=== PATIENT | female | born 1935 | race Caucasian/White ===

== ENCOUNTER 2020-03-24 13:13 | Emergency (ER) | payer MEDICARE, OTHER ==
[~2020-03-24] VITALS: Ht 152.4 cm; Wt 58.9 kg
[~2020-03-24 13:13] MED LIST: ASPI-1265 PO; CITRACAL; LISI-230 PO; LOVA40TA76 PO; MAGN400C PO; OMEG1CAP54 PO; SYN0.1T PO; VITAMIN B 12 PO; VITAMIN D PO; [UNRECOGNIZED DRUG - CODE] PO
[2020-03-24 15:23] LABS: BASOPHILS # (AUTO) 0.1 X10'3 (0-0.2); BASOPHILS % (AUTO) 0.7 % (0-1); EOSINOPHILS # (AUTO) 0.1 X10'3 (0-0.9); EOSINOPHILS % (AUTO) 0.4 % (0-6); HEMATOCRIT 39.8 % (35.0-45.0); LYMPHOCYTES # (AUTO) 1.5 X10'3 (1.1-4.8); LYMPHOCYTES % (AUTO) 11.6 % (21-51); MEAN CORPUSCULAR HEMOGLOBIN 30.5 PG (27.0-31.0); MEAN CORPUSCULAR HGB CONC 32.6 g/dL (33.0-36.5); MEAN CORPUSCULAR VOLUME 93.6 FL (78-98); MONOCYTES # (AUTO) 0.8 X10'3 (0-0.9); NEUTROPHILS # (AUTO) 10.7 X10'3 (1.8-7.7); NEUTROPHILS % (AUTO) 81.3 % (42-75); PLATELET COUNT 450 X10'3 (140-440); RED BLOOD COUNT 4.25 X10'6 (4.20-5.60); RED CELL DISTRIBUTION WIDTH 14.7 % (11.5-14.5); WHITE BLOOD COUNT 13.1 X10'3 (4.5-11.0)
[2020-03-24 15:43] LABS: ALANINE AMINOTRANSFERASE 43 U/L (12-78); ALBUMIN 3.6 G/DL (3.4-5.0); ALBUMIN/GLOBULIN RATIO 0.8 (1.1-1.5); ALKALINE PHOSPHATASE 87 IU/L (46-116); ANION GAP 7 (8-16); ASPARTATE AMINO TRANSFERASE 29 U/L (10-37); BILIRUBIN,TOTAL 0.6 MG/DL (0.1-1.0); BLOOD UREA NITROGEN 18 MG/DL (7-18); BUN/CREATININE RATIO 20.5 (6.6-38.0); CALCIUM 10.2 MG/DL (8.5-10.1); CHLORIDE 98 MMOL/L (99-107); CREATININE 0.88 MG/DL (0.40-0.90); GLUCOSE 148 MG/DL (70-104); POTASSIUM 4.1 MMOL/L (3.5-5.1); SODIUM 133 MMOL/L (135-145); TOTAL CARBON DIOXIDE 27.6 MMOL/L (24-32); eGFR 61 ML/MIN
--- NOTE | 2020-03-24 16:00 | NUR ---
ERMD at bedside to digitally disimpact stool.
[2020-03-24] MEDS ORDERED: mineral oil 133ml enema RC PRN (16:10)
--- NOTE | 2020-03-24 17:20 | NUR ---
Scant amount of stool passed after fleet enema. Soap suds enema administered as ordered. Will continue to monitor.
[2020-03-24] MEDS ORDERED: POLY17PO10 PO (18:51)
--- NOTE | 2020-03-24 18:54 | NUR ---
SPOKE WITH SONON PHONE, INFORMED OF DC READY. SAYS WILL BE HERE IN APPROX 20 MINUTES
[2020-03-24 18:59] VITALS: BP 125/69
== END 2020-03-24 19:08 | disposition home or self-care (01) ==
LOC: ER 13:14
DX: K59.00 Constipation, unspecified (principal); Z88.0 Allergy status to penicillin; Z88.8 Allergy status to other drugs, medicaments and biological substances; Z79.82 Long term (current) use of aspirin; Z79.899 Other long term (current) drug therapy; Z98.891 History of uterine scar from previous surgery; Z90.49 Acquired absence of other specified parts of digestive tract
CPT/HCPCS: 36415; 74176; 80053; 85025; 85610; 99284

== ENCOUNTER 2021-02-06 06:53 | Outpatient (CLI) | payer MEDICARE, OTHER | END 2021-02-06 23:59 | disposition home or self-care (01) | LOC: RT 06:53 | PROVIDERS: ATTEND Internal Medicine Cardiovascular Disease | DX: I70.0 Atherosclerosis of aorta (principal); G31.89 Other specified degenerative diseases of nervous system; Z79.899 Other long term (current) drug therapy | CPT/HCPCS: 71046; 85018; 94010; 94727; 94729 ==

== ENCOUNTER 2021-05-19 12:19 | Emergency (ER) | payer MEDICARE, OTHER ==
[~2021-05-19] VITALS: Ht 152.4 cm; Wt 58.0 kg
[2021-05-19 12:24] VITALS: BP 143/64
--- NOTE | 2021-05-19 15:10 | NUR ---
provider at bedside.
[2021-05-19] MEDS ORDERED: LIDOcaine 1% W/epiNEPHrine 1:200,000 10ml vial IJ ONE (15:20)
[2021-05-19] MEDS ORDERED: TETanus/Pertussis (Acell)/Diphther VAC/PF (Tdap-Adult) 0.5ml syringe IMVAC ONE (15:20)
[2021-05-19] MEDS ORDERED: LIDOcaine 1% W/epiNEPHrine 1:100,000 20ml vial IJ ONE (15:25)
== END 2021-05-19 16:34 | disposition home or self-care (01) ==
LOC: ER 12:20
DX: S42.292A Other displaced fracture of upper end of left humerus, initial encounter for closed fracture (principal); S01.01XA Laceration without foreign body of scalp, initial encounter; I48.91 Unspecified atrial fibrillation; E78.00 Pure hypercholesterolemia, unspecified; I10 Essential (primary) hypertension; Z88.0 Allergy status to penicillin; Z79.82 Long term (current) use of aspirin; Z79.899 Other long term (current) drug therapy; W18.09XA Striking against other object with subsequent fall, initial encounter; Z91.81 History of falling; Y93.89 Activity, other specified; Y92.096 Garden or yard of other non-institutional residence as the place of occurrence of the external cause; Y99.8 Other external cause status
CPT/HCPCS: 12001; 70450; 72125; 73030; 73090; 90715; 99284

== ENCOUNTER 2021-06-01 12:31 | Emergency (ER) | payer MEDICARE, OTHER ==
[~2021-06-01] VITALS: Ht 152.4 cm; Wt 58.0 kg
[2021-06-01 12:39] VITALS: BP 166/79
== END 2021-06-01 12:49 | disposition home or self-care (01) ==
LOC: ER 12:31
DX: S01.01XD Laceration without foreign body of scalp, subsequent encounter (principal); I48.91 Unspecified atrial fibrillation; E78.00 Pure hypercholesterolemia, unspecified; I10 Essential (primary) hypertension; Z48.02 Encounter for removal of sutures; Z88.0 Allergy status to penicillin; Z79.82 Long term (current) use of aspirin; Z79.899 Other long term (current) drug therapy; W19.XXXD Unspecified fall, subsequent encounter
CPT/HCPCS: 99284

== ENCOUNTER 2022-07-23 10:30 | Outpatient (CLI) | payer MEDICARE, BC | END 2022-07-23 23:59 | disposition home or self-care (01) | LOC: CARD DIAG 10:30 | PROVIDERS: ATTEND Internal Medicine Cardiovascular Disease | DX: I08.0 Rheumatic disorders of both mitral and aortic valves (principal); I50.30 Unspecified diastolic (congestive) heart failure | CPT/HCPCS: 93306 ==

== ENCOUNTER 2024-07-02 12:32 | Emergency (ER) | payer MEDICARE, BC ==
[~2024-07-02] VITALS: Ht 154.9 cm; Wt 53.8 kg
[2024-07-02 13:44] LABS: BASOPHILS % (AUTO) 0.4 % (0-1); EOSINOPHILS % (AUTO) 0.2 % (0-6); HEMATOCRIT 33.3 % (35.0-45.0); HEMOGLOBIN 11.2 g/dl (12.0-16.0); LYMPHOCYTES # (AUTO) 0.5 X10'3 (1.1-4.8); MEAN CORPUSCULAR HEMOGLOBIN 34.1 PG (27.0-31.0); MEAN CORPUSCULAR HGB CONC 33.7 g/dL (33.0-36.5); MEAN CORPUSCULAR VOLUME 101.4 FL (78-98); MEAN PLATELET VOLUME 8.3 FL (7.4-10.4); MONOCYTES # (AUTO) 0.4 X10'3 (0-0.9); MONOCYTES % (AUTO) 5.2 % (2-12); NEUTROPHILS # (AUTO) 6.6 X10'3 (1.8-7.7); NEUTROPHILS % (AUTO) 87.2 % (42-75); PLATELET COUNT 190 X10'3 (140-440); RED BLOOD COUNT 3.29 X10'6 (4.20-5.60); RED CELL DISTRIBUTION WIDTH 14.2 % (11.5-14.5); WHITE BLOOD COUNT 7.5 X10'3 (4.5-11.0)
[2024-07-02 14:00] LABS: INR 1.1 INR; PROTHROMBIN TIME 11.3 SECONDS (9.0-12.0)
[2024-07-02 14:03] LABS: ALANINE AMINOTRANSFERASE 83 U/L (12-78); ALBUMIN 3.7 G/DL (3.4-5.0); ALKALINE PHOSPHATASE 70 IU/L (46-116); ANION GAP 7 (8-16); ASPARTATE AMINO TRANSFERASE 65 U/L (10-37); BILIRUBIN,TOTAL 0.7 MG/DL (0.1-1.0); BLOOD UREA NITROGEN 20 MG/DL (7-18); BUN/CREATININE RATIO 17.9 (10.0-20.0); CALCIUM 9.8 MG/DL (8.5-10.1); CHLORIDE 99 MMOL/L (99-107); CREATININE 1.12 MG/DL (0.40-0.90); GLUCOSE 152 MG/DL (70-104); POTASSIUM 5.4 MMOL/L (3.5-5.1); SODIUM 135 MMOL/L (135-145); TOTAL CARBON DIOXIDE 29.4 MMOL/L (24-32); TOTAL PROTEIN 7.5 G/DL (6.4-8.2); eCRCL 27 ML/MIN; eGFR 46 ML/MIN
[2024-07-02 14:05] VITALS: TEMP 97.7
[2024-07-02 14:17] LABS: APTT 26 SECONDS (22-32)
[2024-07-02] MEDS ORDERED: TETanus/Pertussis (Acell)/Diphther VAC/PF (Tdap-Adult) 0.5ml syringe IMVAC ONE (14:50)
[2024-07-02 15:46] VITALS: BP 113/63; PULSE 60; RESP 18; O2SAT 95
== END 2024-07-02 15:25 | disposition home or self-care (01) ==
LOC: ER 12:33
DX: S06.31AA Contusion and laceration of right cerebrum with loss of consciousness status unknown, initial encounter (principal); I48.91 Unspecified atrial fibrillation; E78.00 Pure hypercholesterolemia, unspecified; I10 Essential (primary) hypertension; Z88.0 Allergy status to penicillin; Z79.82 Long term (current) use of aspirin; Z79.84 Long term (current) use of oral hypoglycemic drugs; Z79.899 Other long term (current) drug therapy; W18.39XA Other fall on same level, initial encounter; Y93.89 Activity, other specified; Y92.89 Other specified places as the place of occurrence of the external cause; Y99.8 Other external cause status
CPT/HCPCS: 36415; 70450; 72125; 80053; 85025; 85610; 85730; 99285; A6402; A6449

== ENCOUNTER 2024-08-21 20:35 | Inpatient (IN) | payer MEDICARE, BC ==
[~2024-08-21] VITALS: Ht 162.6 cm; Wt 59.0 kg
[~2024-08-21 20:35] MED LIST changes: +AMI200T PO; +APIX5TAB3 PO; -ASPI-1265 PO; +CYAN500T71 PO; +HYDR-3965 PO; +METO-395 PO; -VITAMIN B 12 PO; -[UNRECOGNIZED DRUG - CODE] PO
[2024-08-21 21:23] LABS: BASOPHILS % (AUTO) 0.1 % (0-1); EOSINOPHILS % (AUTO) 0 % (0-6); HEMATOCRIT 31.7 % (35.0-45.0); HEMOGLOBIN 10.7 g/dl (12.0-16.0); LYMPHOCYTES # (AUTO) 0.6 X10'3 (1.1-4.8); LYMPHOCYTES % (AUTO) 3.5 % (21-51); MEAN CORPUSCULAR HEMOGLOBIN 32.4 PG (27.0-31.0); MEAN CORPUSCULAR HGB CONC 33.7 g/dL (33.0-36.5); MEAN CORPUSCULAR VOLUME 96.3 FL (78-98); MEAN PLATELET VOLUME 7.6 FL (7.4-10.4); MONOCYTES # (AUTO) 1.1 X10'3 (0-0.9); MONOCYTES % (AUTO) 6.4 % (2-12); NEUTROPHILS # (AUTO) 15.9 X10'3 (1.8-7.7); PLATELET COUNT 409 X10'3 (140-440); RED BLOOD COUNT 3.29 X10'6 (4.20-5.60); RED CELL DISTRIBUTION WIDTH 14.4 % (11.5-14.5); WHITE BLOOD COUNT 17.6 X10'3 (4.5-11.0)
[2024-08-21 21:39] LABS: ALANINE AMINOTRANSFERASE 56 U/L (12-78); ALBUMIN 1.6 G/DL (3.4-5.0); ALBUMIN/GLOBULIN RATIO 0.5 (1.1-1.5); ALKALINE PHOSPHATASE 104 IU/L (46-116); ANION GAP 9 (8-16); ASPARTATE AMINO TRANSFERASE 67 U/L (10-37); BILIRUBIN,TOTAL 0.5 MG/DL (0.1-1.0); BLOOD UREA NITROGEN 45 MG/DL (7-18); BUN/CREATININE RATIO 40.9 (10.0-20.0); CALCIUM 9.1 MG/DL (8.5-10.1); CHLORIDE 106 MMOL/L (99-107); GLUCOSE 224 MG/DL (70-104); SODIUM 138 MMOL/L (135-145); TOTAL PROTEIN 4.9 G/DL (6.4-8.2); eCRCL 31 ML/MIN; eGFR 47 ML/MIN
[2024-08-21 21:46] LABS: PRO BRAIN NATRIURETIC PEPTIDE 1617 PG/ML (0-450)
--- NOTE | 2024-08-21 21:50 | RADIOLOGY REPORT ---
Clinical History CP Comparison None Technique: single view chest Without Contrast MARTITA MUHAMMAD, [id number] FINDINGS: Study is limited by patient positioning, upper most portion of left lung apex is excluded from the st udy. Trachea is midline, heart size normal, cardiomediastinal silhouette unremarkable. There is no pneumonia or pulmonary vascular congestion, no pneumothorax, no evidence of pleural or pe ricardial effusion. Osseous structures do not suggest acute pathology on this single image, surgical clips noted in right upper quadrant. IMPRESSION: 1. Slightly limited study as described, no evidence of acute cardiopulmonary disease. This report was electronically signed by Young Samano MD on 08/21/2024 9:47:06 PM.
--- NOTE | 2024-08-21 22:08 | Physician Documentation ---
History of Present Illness ~ Chief Complaint: ALOC Stated Complaint: ALTERED,SEPSIS Time Seen by MD: 22:05 Primary Medical Doctor: Dr Boyd Mode of Arrival: EMS HPI Reviewed discharge summary August 09, 2024 sacral decubitus ulcer, bilateral heel ulcers, hypertension hyperlipidemia atrial fibrillation hypothyroidism status post sacral decubitus ulcer debridement and diverting colostomy She is presenting today for decreasing level of consciousness. She is unable to provide any history due to altered mental state Medication Reconciliation Allergies: Coded Allergies: Penicillins (Verified Allergy, Mild, rash, 07/05/24) Scheduled Amiodarone Hcl (Cordarone), 0.5 TAB PO DAILY, (Reported) Apixaban (Eliquis), 0.5 TAB PO Q12H, (Reported) Collagenase Oint* (Santyl Oint*), 1 APPLIC TOP DAILY, (Reported) Cyanocobalamin* (Vitamin B-12*), 1 TAB PO DAILY, (Reported) Levothyroxine Sodium* (Synthroid*), 112 MCG PO DAILY, (Reported) Lovastatin* (Mevacor*), 20 MG PO QPM, (Reported) Magnesium Oxide (Magnesium), 400 MG PO Q24H, (Reported) Metoprolol Succinate (Metoprolol Succinate), 1 TAB PO DAILY, (Reported) Potassium Chloride (Klor-Con), 1 TAB PO DAILY, (Reported) Scheduled PRN Hydrocodone Bit/Acetaminophen 5/325 MG ([place] 5/325 MG), 1-2 TAB PO Q6H PRN for pain, (Reported) Discontinued Medications Lisinopril/Hydrochlorothiazide 10-12.5 Mg* (Lisinopril-Hctz 10-12.5 Mg*), 1 EACH PO DAILY, (Reported) Discontinued Reason: Pt. condition changed [place]-3 Fatty Acids/Fish Oil (Fish Oil 1,000 Mg Capsule), 1 EACH PO Q24H, (Reported) Discontinued Reason: Pt. condition changed [Citracal], 400 Q24H, (Reported) Discontinued Reason: patient no longer taking [Vitamin D], 2,000 INTLU PO Q24H, (Reported) Discontinued Reason: patient no longer taking Past Medical History Past Medical History: Atrial Fibrillation, High Cholesterol, Hypertension, Hypothyroidism Past Surgical History: noncontributory Patient History: FH: cancer Sister FH: heart disease Sister Rectal cancer MOTHER Alcohol Use: None Drug Use: none Lives with: Spouse Lives In: Home Occupation: retired Review of Systems Unable to obtain complete ROS: altered mental status Physical Exam Vital Signs: RN Vital Signs have been reviewed: Yes, Temperature: 98.1, Source: Axillary, Heart Rate: 82, Respiratory Rate: 16, BP: 120/53, Pulse Oximetry: 96, Weight: 59.000 Oxygen Flow Rate: 2.0 Physical Exam Dry mucous membranes Pulmonary clear to auscultation bilaterally Abdomen soft nontender colostomy in place draining normal stool, stoma intact Lower extremity no rash Sacral wound VAC in place Neuro moving all extremities, somnolence, GCS 10 Progress Progress Note Discussed case with hospitalist team who graciously agreed to accept for admission Labs independently interpreted by myself shows leukocytosis Results/Orders Reviewed/noted all lab results: Yes Results/Orders Orders - ELHAM RUBIO MD Chest,Single View (08/21/24 20:40) Monitor (08/21/24 20:40) Saline Lock (08/21/24 20:40) Oxygen (08/21/24 20:40) Electrocardiogram (08/21/24 20:40) Culture Blood (08/21/24 20:40) Straight Cath For Urine Sample (08/21/24 20:40) Cult Urine + Tow Ct (08/21/24 22:31) Page Hospitalist (08/21/24 23:20) Fill Out Med Reconciliation (08/21/24 23:20) Completed Orders - ELHAM RUBIO MD Chest,Single View (08/21/24 20:40) Cbc/Diff (08/21/24 20:40) PBNP (08/21/24 20:40) CMP (08/21/24 20:40) Hs Troponin I W Calculations (08/21/24 20:40) Hs Troponin I W Calculations (08/21/24 22:40) Hs Troponin I W Calculations (08/21/24 23:40) Procalcitonin (08/21/24 20:40) Lacticsepsis (08/21/24 20:40) Ua W/Microscopic, Cult If Ind (08/21/24 22:13) Lactic,2hr (08/21/24 22:42) Ceftriaxone 2gm/D5w 50ml Bag (Rocephin 2 (08/21/24 23:20) Ringers Solution, Lacted (Lactated Ringe (08/21/24 23:30) Hgb A1c (08/21/24 21:15) MG (08/21/24 21:15) PHOS (08/21/24 21:15) TSH (08/21/24 21:15) Medications Received in ER Medications (Trade) Dose Ordered Sig/Keith Route PRN Reason Start Time Stop Time Status Last Admin Dose Admin Ceftriaxone Sodium/Dextrose 50 ml @ 100 mls/hr ONCE ONCE IV 08/21/24 23:20 08/21/24 23:49 DC 08/21/24 23:31 100 MLS/HR Lactated Ringer's 1,000 ml @ 1,000 mls/hr ONCE ONCE IV 08/21/24 23:30 08/22/24 00:29 DC 08/21/24 23:39 1,000 MLS/HR Vital Signs 08/21/24 08/21/24 08/21/24 20:39 20:58 22:24 Temp 98.1 Pulse 82 68 Resp 16 23 B/P (MAP) 120/53 111/53 (72) Pulse Ox 96 96 O2 Flow Rate 2.0 2.0 Laboratory Tests Test 08/21/24 21:15 08/21/24 22:13 08/21/24 23:32 White Blood Count 17.6 H Red Blood Count 3.29 L Hemoglobin 10.7 L Hematocrit 31.7 L Mean Corpuscular Volume 96.3 Mean Corpuscular Hemoglobin 32.4 H Mean Corpuscular Hemoglobin Concent 33.7 Red Cell Distribution Width 14.4 Platelet Count 409 Mean Platelet Volume 7.6 Neutrophils (%) (Auto) 90.0 H Lymphocytes (%) (Auto) 3.5 L Monocytes (%) (Auto) 6.4 Eosinophils (%) (Auto) 0 Basophils (%) (Auto) 0.1 Neutrophils # (Auto) 15.9 H Lymphocytes # (Auto) 0.6 L Monocytes # (Auto) 1.1 H Eosinophils # (Auto) 0.0 Basophils # (Auto) 0.0 CBC Comment Sodium Level 138 Potassium Level 5.0 Chloride Level 106 Carbon Dioxide Level 23.0 L Anion Gap 9 Blood Urea Nitrogen 45 H Creatinine 1.10 H Estimated GFR/1.73 m2 47 BUN/Creatinine Ratio 40.9 H Glucose Level 224 H Hemoglobin A1c 5.6 Lactic Acid Level 3.7 H 3.9 H Calcium Level 9.1 Phosphorus Level 3.3 Magnesium Level 2.3 Total Bilirubin 0.5 Aspartate Amino Transf (AST/SGOT) 67 H Alanine Aminotransferase (ALT/SGPT) 56 Alkaline Phosphatase 104 Troponin I High Sensitivity 18 19 Pro-B-Type Natriuretic Peptide 1617 H Total Protein 4.9 L Albumin 1.6 L Globulin 3.3 Albumin/Globulin Ratio 0.5 L Procalcitonin 8.15 H Thyroid Stimulating Hormone (TSH) 3.01 Chemistry Comments Urine Specimen Description Estrella cath Urine Color Yellow Urine Clarity Cloudy Urine pH 5.5 Urine Specific [place] 1.020 Urine Protein 30 H Urine Glucose (UA) Negative Urine Ketones Trace H Urine Occult Blood Small Urine Nitrite Negative Urine Bilirubin Negative Urine Urobilinogen 0.2 Urine Leukocyte Esterase Moderate H Urine RBC 0-2 Urine WBC Tntc H Urine Squamous Epithelial Cells Few Urine Bacteria 2+ Urine Hyaline Casts 0-3 Urine Yeast Moderate Urine Culture Indicated Indicated Volume Urine Centrifuged 10 ml Urine Comment Urine Opiates Screen Positive Urine Methadone Screen Negative Urine Fentanyl Screen Negative Urine Barbiturates Screen Negative Urine Phencyclidine Screen Negative Urine Amphetamines Screen Negative Urine Benzodiazepines Screen Negative Urine Cocaine Screen Negative Urine Cannabinoids Screen Negative Drug Screen Comment Troponin I High Sens Percent Delta 5 Troponin I Hi Sens Absolute Change 1 Microbiology Date/Time Source Procedure Growth Status 08/21/24 22:31 Urine Estrella Cath Urine Culture - Preliminary Culture received. Resulted 08/21/24 21:15 Blood Arm Right Blood Culture - Preliminary NEGATIVE (LESS THAN 24 HOURS) Resulted EKG/XRAY/CT/US/VASC/MRI EKG : Additional Comment I independently interpreted EKG time 8:41 p.m. indication symptomatic patient normal sinus rhythm rate 80 normal axis normal intervals no ST or T-wave abnormality Medical Decision Making Additional info obtained from: old records Additional Information CVA, metabolic encephalopathy, urinary tract infection, sepsis Departure Disposition: ADMITTED INPATIENT Admitted to Inpatient Unit: to hospitalist Impression: Primary Impression: Metabolic encephalopathy Additional Impression: Pyelonephritis Referrals: NO PRIMARY CARE PROVIDER (PCP) Critical Care Note Total Time (mins): 30 Critical Care Note The very real possibility of a deterioration of this patient's condition required the highest level of my preparedness for sudden, emergent intervention. I provided critical care services, which included medication orders, frequent reevaluations of the patient's condition and response to treatment, ordering and reviewing test results, and discussing the case with various consultants. Exclu ean time spent performing separately billable procedures. The critical care time associated with the care of the patient was 30 minutes in the acute management of metabolic encephalopathy and severe sepsis Signature Scribe Signature: [email or web address] Attestation: ELHAM Varner MD August 21, 2024 22:08
[2024-08-21 22:24] LABS: BILIRUBIN,URINE NEGATIVE (Neg); CLARITY,URINE CLOUDY (Clear); COLOR,URINE YELLOW (Yellow); GLUCOSE, URINE NEGATIVE (Neg); KETONES,URINE TRACE mg/dl (Neg); LEUKOCYTE ESTERASE ,URINE MODERATE (Neg); NITRITES, URINE NEGATIVE (Neg); OCCULT BLOOD,URINE SMALL (Neg); PH,URINE 5.5 (4.8-8.0); PROTEIN,URINE 30 mg/dl (Neg); UROBILINOGEN,URINE 0.2 E.U/dL (0.2-1.0)
[2024-08-21 22:28] LABS: UA COLLECTION TYPE FOLEY CATH
[2024-08-21 22:29] LABS: WBC,URINE TNTC /HPF (0-4)
[2024-08-21 22:30] LABS: BACTERIA,URINE 2+ /HPF (Neg); HYALINE CASTS 0-3 /LPF (NEGATIVE); RBC,URINE 0-2 /HPF (0-2); SQUAMOUS EPITHELIAL CELL,UR FEW /LPF (FEW); YEAST MODERATE /HPF (NEGATIVE)
[2024-08-21] MEDS: CefTRIAXone 2gm/D5W 50ml BAG 50 ML IV ONE (23:31)
[2024-08-21] MEDS: ringers solution, lacted 1,000 ML IV ONE (23:39)
[2024-08-21] MEDS ORDERED: magnesium hydroxide 30ml (MOM) UD suspension PO PRN (23:55)
[2024-08-21] MEDS ORDERED: docusate sod 100mg capsule PO PRN (23:55)
[2024-08-21] MEDS ORDERED: morphine 2 MG/ML inj. syringe IV PRN ×2 (23:55)
[2024-08-21] MEDS ORDERED: mag hydrox/Alum hydrox/simeth 30ml oral suspension PO PRN (23:55)
[2024-08-21] MEDS ORDERED: magnesium Cl slow-release 64mg tablet PO PRN (23:55)
[2024-08-21] MEDS ORDERED: potassium Cl 20 mEq SR tablet PO PRN ×2 (23:55)
[2024-08-21] MEDS ORDERED: potassium Cl 40MEQ/1/2NS 520ml 520 ML IV PRN (23:55)
[2024-08-21] MEDS ORDERED: magnesium sulf-water 4G/100mL 100 ML IV PRN (23:55)
[2024-08-21] MEDS ORDERED: magnesium sulf-water 2g/50mL 50 ML IV PRN (23:55)
[2024-08-22] VITALS (8 sets, daily range): BP systolic 120–150; BP diastolic 53–65; PULSE 70–82; RESP 16–23; TEMP 96.4–99.2; O2SAT 94–99
--- NOTE | 2024-08-22 00:10 | HISTORY AND PHYSICAL-Residence ---
History & Physical Providers to CC Resident Creating Document: CALIXTO HOANG, RES ~ History of Present Illness Primary Medical Doctor: Dr Boyd Reason for Admit\Complaint: Acute metabolic encephalopathy from possible UTI History of Present Illness An 89 years old female who came from [facility] for acute altered mental status today with a past medical history of decubitus aerosol in her lumbosacral region which is managing with wound VAC, bilateral heels pressure ulcers, s/p scaral decubitus ulcer debridement and diverting functioning colostomy, s/p right hip arthroplasty for right femoral neck hip fracture, HTN, HLD, AFib with CVR on renal dose of Eliquis, hypothyroidism on levothyroxine, s/p cholecystectomy, appendicectomy, three C sections. Patient is orientated to the place and person herself but not the time, very lethargic and generalized weakness made her poor history providing but responding to questions slowly and cooperative during exam. As per staff from [facility], patient is orientated alert and awake for 4 times before she got altered mental status this morning. Patient has chronic Estrella catheterization once she came in, mostly bed-bound with wound VAC over her lumbosacral decubitus ulcer. Patient was found to have fever around 102 before she came in. She denies any nausea and vomiting, chest pain/pressure/discomfort, body pain, coughing, shortness of breath, orthopnea PND and bilateral pedal edema, dysuria, abnormal bowel movements, any new FND. She was not reported for any falls or head injury. Allergies: Coded Allergies: Penicillins (Verified Allergy, Mild, rash, 07/05/24) Home Medications Home Medications Active Reported [place] 5/325 MG (Acetaminophen/Hydrocodone Bitart) 5 Mg/325 Mg Tablet 1-2 Tab PO Q6H PRN 30 Days Cordarone (Amiodarone HCl) 200 Mg Tablet 0.5 Tab PO DAILY 30 Days Vitamin B-12* (Cyanocobalamin) 500 Mcg Tablet 1 Tab PO DAILY 30 Days Metoprolol Succinate 25 Mg Tab.sr.24h 1 Tab PO DAILY 30 Days Eliquis (Apixaban) 5 Mg Tablet 0.5 Tab PO Q12H 30 Days [Citracal] 400 Q24H Magnesium (Magnesium Oxide) 400 Mg Capsule 400 Mg PO Q24H Fish Oil 1,000 Mg Capsule ([place]-3 Fatty Acids/Fish Oil) 1 Each Capsule 1 Each PO Q24H [Vitamin D] 2,000 Intlu PO Q24H Synthroid* (Levothyroxine Sodium) 100 Mcg Tablet 112 Mcg PO DAILY Lisinopril-Hctz 10-12.5 Mg* (HCTZ/Lisinopril) 10 Mg/12.5 Mg Tablet 1 Each PO DAILY Mevacor* (Lovastatin) 40 Mg Tablet 20 Mg PO QPM Past Medical History Past Medical History decubitus aerosol in her lumbosacral region which is managing with wound VAC, bilateral heels pressure ulcers, s/p scaral decubitus ulcer debridement and diverting functioning colostomy, HTN, HLD, AFib with CVR on renal dose of Eliquis, hypothyroidism on levothyroxine Past Surgical History Surgical History Comment s/p right hip arthroplasty for right femoral neck hip fracture, s/p cholecystectomy, appendicectomy, three C sections. Family History Family History: FH: cancer Sister FH: heart disease Sister Rectal cancer MOTHER Past Social History Social History Comment She came [facility] Smoking: Non-Smoker Alcohol Use: None Drug Use: None Lives with: Spouse Lives In: Home Occupation: retired ROS ROS Hours were reviewed WNL except for the above-mentioned in the HPI. Unable to obtain: altered mental status Exam Vitals: Vital Signs Date Time Temp Pulse Resp B/P (MAP) Pulse Ox O2 Delivery O2 Flow Rate FiO2 08/21/24 23:39 70 20 117/59 (78) 98 0 08/21/24 20:39 98.1 General: General: Not well oriented She is lethargic agitated, not in acute distress, cooperated during the physical. Very lethargic generalized weakness, frail looking. HEENT: HEENT: Conjunctive are pink, sclerae clear, no icterus, pupil is equal in both sides, reactive to light, no ear discharge, no pharyngeal erythema or an edema, mouth and lips are very dry. Neck: Neck: Supple, no JVD, no lymphadenopathy and thyromegaly. Chest: Lungs:Equal air entry on both lungs, no additional sounds Cardiovascular: Heart: S1-S2 regular sinus rhythm and, regular rate, no gallops, no rubs, no murmurs Abdomen: Abdomen: No visible peristalsis, Bowel sounds present on auscultation, soft, nontender, no guarding, no rigidity. Functioning left colostomy with pink mucosa without having any complications draining some amount of normal feces into the colostomy bag. No SPA tenderness. Extremities: Extremities: No obvious deformities, no pitting edema bilaterally, capillary refill intact, able to wiggle toes both sides, peripheral pulsations are intact on both sides Central Nervous System: WEATHER FORCASTER: Could not perform neurologic exam since the patient is slightly confused and not well following the commands Musculoskeletal: Musculoskeletal: No joint swelling, deformities, inflammations, and no scoliosis and back tenderness Skin: Skin: No active skin lesions and rashes Bilateral heels ulcers were dressed with bandages and could not assess to the lumbosacral decubitus ulcer with wound VAC Diagnostic Data Last Recorded Lab Results: 08/21/[id number] Advance Care Planning Advanced Care plannin - 30 Minutes Additional Plan An 89 years old female who came from [facility] for acute altered mental status today with a past medical history of decubitus aerosol in her lumbosacral region which is managing with wound VAC, bilateral heels pressure ulcers, s/p scaral decubitus ulcer debridement and diverting functioning colostomy, s/p right hip arthroplasty for right femoral neck hip fracture, HTN, HLD, AFib with CVR on renal dose of Eliquis, hypothyroidism on levothyroxine, s/p cholecystectomy, appendicectomy, three C sections. # Acute metabolic encephalopathy possibly from UTI # Sepsis # Unknown staging of Lumbosacral decubitus ulcers with Wound VAC # Bilateral pressure heels ulcers # neutrophilic leukocytosis -elevated neutrophils, elevated procalcitonin 8.15, elevated lactic acid 3.7 -electrolytes within normal, glucose 224 -normal troponin 18, normal EKG with no significant ST-T changes -CXR showed Slightly limited study as described, no evidence of acute cardiopulmonary disease. -UA showed moderate leukocyte esterase, TNTC WBC on Estrella with no symptoms -IV LR 1 L bolus was given in ER, followed by IV NS 500 ml bolus and maintaince of IV NS 0.9% 100 mL/hr -given one time dose of IV Albumin 25 % -vitals were stable with stable BP -rechecked lactic acid showed 3.9 -given one time dose of IV ceftriaxone in ER and switched into Vancomycin and Cefepime. -wound consultation and care, wound culture and sensitivity, ostomy care were requested -follow up with wound urine culture and sensitivity for adjustment of antibiotics -pain control with IV morphine and Tylenol as needed -aspiration, fall precaution with the apply -NPO until bedside swallow test past # GRIS on CKD stage 3-mostly from renal tubular stasis # elevated BUN creatinine ratio -baseline creatinine 0.6, EGFR around 70 -BUN 45, creatinine 1.1, ratio>20 possibly from the severe dehydration and renal tubular stasis -monitor I's and O's -continue IV fluid 0.9% NS with 75 mL/hr # Hx of HFpEF 70% on echo 07/23/22 # Elevated proBNP -no signs and symptoms of active/acute on chronic CHF exacerbation -benefits of IV fluids outweighed the IV Lasix therapy at the moment # dimorphic anemia -normocytic, 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 and possible NITA component -plan for iron study, but we will not replace in the setting of generalized infections -daily CBC monitoring # Hyperglycemia -RBS 223 and 196 and her [id number] 5.6% -continuous daily monitoring and will consider for Insulin to control RBS # history of hypertension, HLD # AFib with CVR on Eliquis # hypothyroid history on levothyroxine -pending med rec CODE STATUS: Full code, POLST paper established DVT prophylaxis: Sc Heparin Analgesia/sedation: IV morphine, Tylenol needed Lines/tubes: Peripheral IV, Estrella GI prophylaxis: None Nutrition: NPO until bedside swallow test passed Prognosis: Guarded Disposition: Continue medical management including IV fluids and antibiotics, follow up with the culture and sensitivity for the adjustment antibiotics, wound and ostomy care, PT eval and DC plan including rehab discharge plan. Resident MD attestation: Patient was seen, examined and discussed with attending MD, Dr. Barreto I asked that the patient be moved to a more monitored step down/progressive care unit Continue IVF resuscitation at this time Broad spectrum antibiotics Monitor vitals and mental status CALIXTO HOANG MD Internal Medicine Resident, PGY2 [facility] Date of Service: August 22, 2024 Billing Provider: SNEHAL BARRETO MD, TIN, RES August 22, 2024 00:10 SNEHAL BARRETO MD August 22, 2024 04:29
[2024-08-22 00:34] LABS: BASOPHILS % (AUTO) 0.1 % (0-1); EOSINOPHILS % (AUTO) 0 % (0-6); HEMATOCRIT 32.5 % (35.0-45.0); HEMOGLOBIN 10.7 g/dl (12.0-16.0); LYMPHOCYTES # (AUTO) 1.1 X10'3 (1.1-4.8); LYMPHOCYTES % (AUTO) 5.6 % (21-51); MEAN CORPUSCULAR HEMOGLOBIN 32.1 PG (27.0-31.0); MEAN CORPUSCULAR VOLUME 97.5 FL (78-98); MONOCYTES # (AUTO) 2.5 X10'3 (0-0.9); MONOCYTES % (AUTO) 12.6 % (2-12); NEUTROPHILS # (AUTO) 16.2 X10'3 (1.8-7.7); NEUTROPHILS % (AUTO) 81.7 % (42-75); PLATELET COUNT 426 X10'3 (140-440); RED BLOOD COUNT 3.33 X10'6 (4.20-5.60); RED CELL DISTRIBUTION WIDTH 15.1 % (11.5-14.5); WHITE BLOOD COUNT 19.8 X10'3 (4.5-11.0)
[2024-08-22] MEDS ORDERED: COLL30OI TOP (00:36)
[2024-08-22] MEDS ORDERED: POTA-192 PO (00:36)
[2024-08-22 00:38] LABS: MAGNESIUM 2.3 MG/DL (1.5-2.4); PHOSPHORUS 3.3 MG/DL (2.3-4.5)
[2024-08-22 00:43] LABS: HEMOGLOBIN A1C 5.6 % (4.5-6.2)
[2024-08-22 00:52] LABS: URINE AMPHETAMINE SCREEN NEGATIVE (Neg); URINE BARBITUATE SCREEN NEGATIVE (Neg); URINE BENZODIAZEPINES SCREEN NEGATIVE (Neg); URINE CANNABINOID SCREEN NEGATIVE (Neg); URINE COCAINE SCREEN NEGATIVE (Neg); URINE METHADONE SCREEN NEGATIVE (Neg); URINE OPIATE SCREEN POSITIVE (Neg); URINE PHENCYCLIDINE SCREEN NEGATIVE (Neg)
[2024-08-22] MEDS: ringers solution, lacted 1,000 ML IV ONE (00:52)
[2024-08-22 00:59] LABS: ALANINE AMINOTRANSFERASE 60 U/L (12-78); ALBUMIN 1.6 G/DL (3.4-5.0); ALBUMIN/GLOBULIN RATIO 0.4 (1.1-1.5); ALKALINE PHOSPHATASE 100 IU/L (46-116); ANION GAP 8 (8-16); ASPARTATE AMINO TRANSFERASE 67 U/L (10-37); BILIRUBIN,TOTAL 0.4 MG/DL (0.1-1.0); BLOOD UREA NITROGEN 47 MG/DL (7-18); BUN/CREATININE RATIO 35.6 (10.0-20.0); CALCIUM 9.4 MG/DL (8.5-10.1); CHLORIDE 105 MMOL/L (99-107); CHOL/HDL RATIO 2.1 (0.00-4.99); CHOLESTEROL 87 MG/DL (0-200); CREATININE 1.32 MG/DL (0.40-0.90); GLUCOSE 223 MG/DL (70-104); HDL CHOLESTEROL 42 MG/DL (35-60); LDL CHOLESTEROL 39 MG/DL (50-100); MAGNESIUM 2.3 MG/DL (1.5-2.4); POTASSIUM 5.2 MMOL/L (3.5-5.1); SODIUM 138 MMOL/L (135-145); TOTAL CARBON DIOXIDE 24.6 MMOL/L (24-32); TOTAL PROTEIN 5.2 G/DL (6.4-8.2); TRIGLYCERIDES 35 MG/DL (20-135); eCRCL 26 ML/MIN; eGFR 38 ML/MIN
[2024-08-22] MEDS: normal saline 1000ml 1,000 ML IV SCH (01:11)
[2024-08-22 01:18] LABS: THYROID STIMULATING HORMONE 3.01 ulU/ml (0.34-4.50)
[2024-08-22 01:22] LABS: ANISOCYTOSIS 1+; PLATELET ESTIMATE NORMAL; TOTAL CELLS COUNTED 100
[2024-08-22] MEDS ORDERED: cefepime 1GM/NS ADD-VANTAGE 100 ML IV SCH (02:55)
[2024-08-22] MEDS: normal saline 500ml IV soln 500 ML IV ONE (03:14)
[2024-08-22] MEDS: albumin (human) 25% 100 ML IV solution IV ONE (04:05)
[2024-08-22] MEDS: cefepime 1GM in D5W 50mL 50 ML IV ONE (04:55)
--- NOTE | 2024-08-22 05:20 | ELECTROCARDIOGRAPH REPORT ---
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 Scott Jackson Measurements Intervals [place] Rate: 80 P: 58 TN: 200 QRS: 48 QRSD: 114 T: 42 QT: 377 QTc: 435 Interpretive Statements Sinus rhythm Borderline intraventricular conduction delay Low voltage, precordial leads Non specific ST T wave changes Electronically Signed On 08-22-2024 18:47:[address] Scott Jackson Please click the below link to view image of tracing.
[2024-08-22] MEDS: cefepime 1GM in D5W 50mL 50 ML IV SCH (05:44)
[2024-08-22] MEDS ORDERED: heparin, porcine 5000 units/ml vial SQ SCH (08:00)
[2024-08-22] MEDS ORDERED: amiodarone 200mg tablet PO SCH (08:00)
[2024-08-22] MEDS: K and/or MAG REPLACEMENT MC SCH (08:00)
[2024-08-22] MEDS ORDERED: levoTHYROXINE 100mcg tablet PO SCH (08:00)
[2024-08-22] MEDS ORDERED: CefTRIAXone/D5W-Rocephin 1gm 50 ML IV SCH (08:00)
[2024-08-22] MEDS: metoprolol succinate 25mg (24-HOUR) SR. Tablet PO SCH (10:24)
[2024-08-22] MEDS: apixaban 2.5mg tablet PO SCH (10:24)
[2024-08-22] MEDS: levoTHYROXINE 112mcg tablet PO SCH (11:11)
[2024-08-22] MEDS: amiodarone 100mg tablet PO SCH (11:11)
[2024-08-22] MEDS: vancomycin/NS 1 GM ADD-VANTAGE 250 ML X 1 DOSE IV ONE (11:17)
[2024-08-22] MEDS: VANCOMYCIN 1,500MG in normal saline IV soln 300 ML IV ONE (11:20)
[2024-08-22 12:29] LABS: C DIFF ANTIGEN POSITIVE (NEGATIVE); C DIFF SPECIMEN=DIARRHEA? ACCEPTABLE; C DIFFICILE TOXINS A&B POSITIVE (Neg)
--- NOTE | 2024-08-22 13:57 | PROGRESS NOTE ---
Daily Progress Note Providers to CC ~ no new complaint today, resting comfortably in the bed Central Line/PICC still needed: No Estrella-Non Protocol Estrella Indications Met/Not Met: F/C Indications Not Met Antibiotic Timeout Antibiotic Ordered?: Yes MRSA Education MRSA Education Provided to pt: Yes Subjective As above Objective Vital Signs Date Time Temp Pulse Resp B/P (MAP) Pulse Ox O2 Delivery O2 Flow Rate FiO2 08/22/24 10:22 82 142/60 (87) 95 Room Air 08/22/24 10:00 16 08/22/24 10:00 97.1 08/22/24 01:00 0.0 Vital signs, stable ,afebrile. Pulse Oximetry reflects adequate oxygenation. General: well developed, well nourished. Awake , alert, and oriented x4, resting comfortably in the bed, in no acute distress . Skin: Warm, dry, no pallor, no rash or petechiae. HEENT: Atraumatic, normocephalic, EOMI, anicteric sclera B; pink conjunctiva; PERRLA, normal oropharynx, moist oral and nasal mucosa. Tympanic membrane , nose , throat clear. Neck: Trachea midline. Supple, full range of motion, no JVD, bruit , hepatojugular reflex , lymphadenopathy or masses, or other lesions Cardiac: Regular rhythm, regular rate no murmurs, rubs, or gallops. Normal S1 and S2, no S3 noticed. PMI is normal. Respiratory: Equal breath sounds bilaterally, no tachypnea; lungs clear to auscultation bilaterally, no wheezing ,rub or rales, or crackles. Chest wall is symmetric and without deformity. No signs of trauma. Chest wall is nontender. No signs of respiratory distress. Resonance is normal upon percussion bilaterally. Gastrointestinal: Abdomen symmetric, non-distended, soft, non-tender, normal bowel sounds x4 quadrant, normoactive, no hepatosplenomegaly , no masses , no bruit, no flank pain bilaterally. No voluntary guarding, rebound, or rigidity. No tenderness to percussion. No pulsatile masses. Equal femoral pulses. No Phillip's sign or McBurney point tenderness. Back; no CVA tenderness bilaterally, no deformities. Neck and back are without deformity as well. No tenderness noted on palpation of the spinous processes. Spinous processes are midline. Cervical, thoracic, and lumbar paraspinal muscles are not tender and are without spasm. Musculoskeletal: Extremities, normal range of motion, non-tender, muscle strength 5/5 x 4. Negative Homans signs bilaterally on lower extremity. Distal pulses full symmetrical, no clubbing, cyanosis , edema. Neurological: Speech is clear, alert, and oriented x 4. No motor or sensory deficit, deep tendon reflexes normal, cerebellar intact. Cranial nerves II-XII intact. Psych: Alert and or appropriate, normal affect. Vascular: Good distal pulses, which are equal x4; capillary refill less than 2 seconds. Lymphatic, no lymphadenopathy. Result Diagram: 08/22/241808/22/2418 Problem\Assessment\Plan Assessment/Plan An 89 years old female who came from [facility] for acute altered mental status today with a past medical history of decubitus aerosol in her lumbosacral region which is managing with wound VAC, bilateral heels pressure ulcers, s/p scaral decubitus ulcer debridement and diverting functioning colostomy, s/p right hip arthroplasty for right femoral neck hip fracture, HTN, HLD, AFib with CVR on renal dose of Eliquis, hypothyroidism on levothyroxine, s/p cholecystectomy, appendicectomy, three C sections. # Acute metabolic encephalopathy possibly from UTI # Sepsis # Unknown staging of Lumbosacral decubitus ulcers with Wound VAC # Bilateral pressure heels ulcers # neutrophilic leukocytosis C diff colitis, started on vancomycin p.o. -elevated neutrophils, elevated procalcitonin 8.15, elevated lactic acid 3.7 -electrolytes within normal, glucose 224 -normal troponin 18, normal EKG with no significant ST-T changes -CXR showed Slightly limited study as described, no evidence of acute cardiopulmonary disease. -UA showed moderate leukocyte esterase, TNTC WBC on Estrella with no symptoms -IV LR 1 L bolus was given in ER, followed by IV NS 500 ml bolus and maintaince of IV NS 0.9% 100 mL/hr -given one time dose of IV Albumin 25 % -vitals were stable with stable BP -rechecked lactic acid showed 3.9 -given one time dose of IV ceftriaxone in ER and switched into Vancomycin and Cefepime. -wound consultation and care, wound culture and sensitivity, ostomy care were requested -follow up with wound urine culture and sensitivity for adjustment of antibiotics -pain control with IV morphine and Tylenol as needed -aspiration, fall precaution with the apply -NPO until bedside swallow test past # GRIS on CKD stage 3-mostly from renal tubular stasis # elevated BUN creatinine ratio -baseline creatinine 0.6, EGFR around 70 -BUN 45, creatinine 1.1, ratio>20 possibly from the severe dehydration and renal tubular stasis -monitor I's and O's -continue IV fluid 0.9% NS with 75 mL/hr # Hx of HFpEF 70% on echo 07/23/22 # Elevated proBNP -no signs and symptoms of active/acute on chronic CHF exacerbation -benefits of IV fluids outweighed the IV Lasix therapy at the moment #anemia -normocytic, 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 and possible NITA component -plan for iron study, but we will not replace in the setting of generalized infections -daily CBC monitoring # Hyperglycemia -RBS 223 and 196 and her [id number] 5.6% -continuous daily monitoring and will consider for Insulin to control RBS # history of hypertension, HLD # AFib with CVR on Eliquis # hypothyroid history on levothyroxine -pending med rec CODE STATUS: Full code, POLST paper established DVT prophylaxis: Sc Heparin Analgesia/sedation: IV morphine, Tylenol needed Lines/tubes: Peripheral IV, Estrella GI prophylaxis: None Nutrition: NPO until bedside swallow test passed Prognosis: Guarded Sepsis Screening Reassessment Date: August 22, 2024 Date of Service: August 22, 2024 Billing Provider: WENDY CABRAL MD Common Visit Codes: [id number] INP/OBS CARE(HIGH) WENDY CABRAL MD August 22, 2024 13:57
[2024-08-22] MEDS: vancomycin 125 MG/5 ML UD oral SOLN.RECON 5mL oral syringe (FIRVANQ) PO SCH (14:43)
[2024-08-23 05:01] LABS: BASOPHILS % (AUTO) 0.2 % (0-1); EOSINOPHILS % (AUTO) 0 % (0-6); HEMATOCRIT 31.4 % (35.0-45.0); HEMOGLOBIN 10.4 g/dl (12.0-16.0); LYMPHOCYTES # (AUTO) 0.9 X10'3 (1.1-4.8); MEAN CORPUSCULAR HGB CONC 33.1 g/dL (33.0-36.5); MEAN CORPUSCULAR VOLUME 96.6 FL (78-98); MEAN PLATELET VOLUME 8.1 FL (7.4-10.4); MONOCYTES # (AUTO) 1.3 X10'3 (0-0.9); MONOCYTES % (AUTO) 10.6 % (2-12); NEUTROPHILS # (AUTO) 10.2 X10'3 (1.8-7.7); NEUTROPHILS % (AUTO) 82.2 % (42-75); PLATELET COUNT 427 X10'3 (140-440); RED BLOOD COUNT 3.25 X10'6 (4.20-5.60); RED CELL DISTRIBUTION WIDTH 14.8 % (11.5-14.5); WHITE BLOOD COUNT 12.4 X10'3 (4.5-11.0)
[2024-08-23 05:26] LABS: ALANINE AMINOTRANSFERASE 54 U/L (12-78); ALBUMIN 1.8 G/DL (3.4-5.0); ALBUMIN/GLOBULIN RATIO 0.6 (1.1-1.5); ALKALINE PHOSPHATASE 80 IU/L (46-116); ANION GAP 9 (8-16); ASPARTATE AMINO TRANSFERASE 42 U/L (10-37); BILIRUBIN,TOTAL 0.3 MG/DL (0.1-1.0); BLOOD UREA NITROGEN 32 MG/DL (7-18); BUN/CREATININE RATIO 51.6 (10.0-20.0); CHLORIDE 112 MMOL/L (99-107); CREATININE 0.62 MG/DL (0.40-0.90); GLUCOSE 155 MG/DL (70-104); MAGNESIUM 2.1 MG/DL (1.5-2.4); POTASSIUM 3.9 MMOL/L (3.5-5.1); SODIUM 145 MMOL/L (135-145); TOTAL CARBON DIOXIDE 24.4 MMOL/L (24-32); TOTAL PROTEIN 4.9 G/DL (6.4-8.2); eCRCL 55 ML/MIN; eGFR > 90 ML/MIN
[2024-08-23 05:46] LABS: PLATELET ESTIMATE NORMAL; TOTAL CELLS COUNTED 100
[2024-08-23 06:00] VITALS: BP 130/60; PULSE 82; RESP 14; TEMP 98.3; O2SAT 96
[2024-08-23 08:00] VITALS: RESP 16; O2SAT 98
[2024-08-23 10:00] VITALS: BP 124/58; PULSE 76; RESP 17; TEMP 98.1; O2SAT 96
--- NOTE | 2024-08-23 10:37 | RADIOLOGY REPORT ---
INDICATION: riley, uti TECHNIQUE: Multiple real-time sonographic images of the kidneys and bladder were obtained. COMPARISON: None FINDINGS: The right kidney measures 10 cm in length, which is normal in size. There is normal echogen icity of the right kidney. No hydronephrosis. The left kidney measures 11 cm in length, which is normal in size. There is normal echogenicity of th e left kidney. No hydronephrosis. Estrella catheter within the bladder. IMPRESSION: 1. Normal sonographic appearance of the kidneys. No hydronephrosis. No definite renal calculi are not ed. Consider CT CT abdomen/ pelvis examination warranted.
[2024-08-23] MEDS ORDERED: VANCOMYCIN 500MG/WATER FOR INJ (PEG) PREMIX 100 ML IV SCH (11:00)
[2024-08-23] MEDS: cefepime 1GM in D5W 50mL 50 ML IV SCH (12:53)
--- NOTE | 2024-08-23 13:43 | PROGRESS NOTE ---
Daily Progress Note Providers to CC ~ Antibiotic Timeout Antibiotic Ordered?: Yes If Yes, Indications: sepsis, c.diff Subjective No acute events overnight. Patient examined at bedside. No new complaints. Patient denies chest pain, sob, palpitations, abdominal pain, n/v/d.. Vss, labs notable for normalized lactic acid, downtrending procal, downtrending white count, resolving acute kidney injury on IVF. Objective Vital Signs Date Time Temp Pulse Resp B/P (MAP) Pulse Ox O2 Delivery O2 Flow Rate FiO2 08/23/24 08:00 16 98 Room Air 08/23/24 06:00 98.3 82 130/60 (83) 08/22/24 20:00 0.0 Result Diagram: 08/23/2443208/23/24432 Physical Exam General: Generalized weakness, A&Ox2, NAD HEENT: Normocephalic, PERRLA Neck: Supple, trachea midline, no JVD Chest: Clear to auscultation bilaterally Cardiovascular: RRR, S1&S2 GI: Soft and nontender Extremities: No cyanosis/clubbing/or edema GAMBLING BOX PERSON: No focal deficits Musculoskeletal: No paraspinal muscle tenderness, no muscle spasm Skin: Warm and intact Problem\Assessment\Plan 89 years old female who came from [facility] for acute altered mental status today with a past medical history of decubitus aerosol in her lumbosacral region which is managing with wound VAC, bilateral heels pressure ulcers, s/p scaral decubitus ulcer debridement and diverting functioning colostomy, s/p right hip arthroplasty for right femoral neck hip fracture, HTN, HLD, AFib with CVR on renal dose of Eliquis, hypothyroidism on levothyroxine, s/p cholecystectomy, appendicectomy, three C sections. # C. diff- POA # Sepsis 2/2 C.diff # UTI- POA # Acute metabolic encephalopathy 2/2 above # lumbosacral decubitus ulcers with wound VAC # Bilateral pressure heels ulcers -08/23: lactic acid normalized, procal and wbc downtrending; continued on vancomycin p.o., wound care; IV vanco/cefepime discontinued; on isolation # GRIS on CKD stage III 2/2 sepsis/ vasomotor nephropathy -resolving on IVF # Chronic diastolic heart failure -no clinical signs of fluid overload; LA normalized with IVF # Normocytic anemia -follow lab # Hyperglycemia -A1C 5.6% -continuous daily monitoring and will consider for Insulin to control RBS # Hypertension # HLD # AFib with CVR on Eliquis # Hypothyroidism -Eliquis, metoprolol succ, home levothyroxine CODE STATUS: Full code DVT/VTE prophylaxis: Eliquis Disposition: Discharge back to [facility] Date of Service: August 23, 2024 Billing Provider: YESIKA SORENSEN Common Visit Codes: [id number] INP/OBS CARE(HIGH) YESIKA SORENSEN August 23, 2024 13:43
[2024-08-23 18:00] VITALS: BP 114/53; PULSE 79; RESP 18; TEMP 98.2; O2SAT 94
[2024-08-23] MEDS: lactose-reduced food (Ensure Enlive) - 237ml bottle PO SCH (18:00)
[2024-08-23 22:00] VITALS: BP 127/57; PULSE 79; RESP 16; TEMP 98.1; O2SAT 96
[2024-08-24] MEDS ORDERED: VANCOMYCIN 1GM 200ML H20 (PEG) 200 ML IV SCH (04:00)
[2024-08-24 04:28] LABS: BASOPHILS % (AUTO) 0.1 % (0-1); EOSINOPHILS % (AUTO) 0.2 % (0-6); HEMATOCRIT 32.3 % (35.0-45.0); HEMOGLOBIN 10.7 g/dl (12.0-16.0); LYMPHOCYTES # (AUTO) 0.9 X10'3 (1.1-4.8); LYMPHOCYTES % (AUTO) 7.7 % (21-51); MEAN CORPUSCULAR HEMOGLOBIN 31.7 PG (27.0-31.0); MEAN CORPUSCULAR HGB CONC 33.2 g/dL (33.0-36.5); MEAN CORPUSCULAR VOLUME 95.7 FL (78-98); MEAN PLATELET VOLUME 7.9 FL (7.4-10.4); MONOCYTES # (AUTO) 1.2 X10'3 (0-0.9); MONOCYTES % (AUTO) 10.3 % (2-12); NEUTROPHILS # (AUTO) 9.7 X10'3 (1.8-7.7); NEUTROPHILS % (AUTO) 81.7 % (42-75); PLATELET COUNT 445 X10'3 (140-440); RED BLOOD COUNT 3.38 X10'6 (4.20-5.60); WHITE BLOOD COUNT 11.9 X10'3 (4.5-11.0)
[2024-08-24 04:45] LABS: ALANINE AMINOTRANSFERASE 40 U/L (12-78); ALBUMIN 1.6 G/DL (3.4-5.0); ALBUMIN/GLOBULIN RATIO 0.5 (1.1-1.5); ALKALINE PHOSPHATASE 74 IU/L (46-116); ANION GAP 6 (8-16); ASPARTATE AMINO TRANSFERASE 33 U/L (10-37); BILIRUBIN,TOTAL 0.3 MG/DL (0.1-1.0); BLOOD UREA NITROGEN 36 MG/DL (7-18); BUN/CREATININE RATIO 52.9 (10.0-20.0); CALCIUM 9.2 MG/DL (8.5-10.1); CHLORIDE 113 MMOL/L (99-107); CREATININE 0.68 MG/DL (0.40-0.90); GLUCOSE 173 MG/DL (70-104); POTASSIUM 3.7 MMOL/L (3.5-5.1); SODIUM 143 MMOL/L (135-145); TOTAL CARBON DIOXIDE 23.8 MMOL/L (24-32); TOTAL PROTEIN 4.9 G/DL (6.4-8.2); eCRCL 50 ML/MIN; eGFR 82 ML/MIN
[2024-08-24 06:00] VITALS: BP 142/86; PULSE 75; RESP 16; TEMP 97.2; O2SAT 96
[2024-08-24 11:00] VITALS: BP 128/60; PULSE 88; RESP 17; TEMP 97.9; O2SAT 97
[2024-08-24 18:00] VITALS: BP 127/58; PULSE 76; RESP 22; TEMP 98.4; O2SAT 94
--- NOTE | 2024-08-24 19:51 | DISCHARGE SUMMARY ---
Discharge Summary Providers to CC ~ Discharge Summary Admission Diagnosis: METABOLIC ENCEPHALOPATHY Hospital Course DATE OF ADMISSION: 08/21/24 DATE OF DISCHARGE: Discharge Diagnosis\\Comment: C. diff- POA Sepsis 2/2 C.diff- POA UTI- POA Acute metabolic encephalopathy 2/2 above Lumbosacral decubitus ulcers with wound VAC Bilateral pressure heels ulcers Prerenal GRIS on CKD stage III 2/2 sepsis/ vasomotor nephropathy- POA Chronic diastolic heart failure Normocytic anemia Hyperglycemia Hypertension HLD AFib with CVR on Eliquis Hypothyroidism Operations\\Procedures: None Consultants: None Complications: None Condition on DC: Stable for transfer Discharge Summary: History of Present Illness From &P: Brayden Holder is a "89 years old female who came from [facility] for acute altered mental status today with a past medical history of decubitus aerosol in her lumbosacral region which is managing with wound VAC, bilateral heels pressure ulcers, s/p scaral decubitus ulcer debridement and diverting functioning colostomy, s/p right hip arthroplasty for right femoral neck hip fracture, HTN, HLD, AFib with CVR on renal dose of Eliquis, hypothyroidism on levothyroxine, s/p cholecystectomy, appendicectomy, three C sections. Patient is orientated to the place and person herself but not the time, very lethargic and generalized weakness made her poor history providing but responding to questions slowly and cooperative during exam. As per staff from [facility], patient is orientated alert and awake for 4 times before she got altered mental status this morning. Patient has chronic Estrella catheterization once she came in, mostly bed-bound with wound VAC over her lumbosacral decubitus ulcer. Patient was found to have fever around 102 before she came in. She denies any nausea and vomiting, chest pain/pressure/discomfort, body pain, coughing, shortness of breath, orthopnea PND and bilateral pedal edema, dysuria, abnormal bowel movements, any new FND. She was not reported for any falls or head injury." Hospital Course Same findings were notable for elevated lactic acid, positive C. diff toxin A&B and antigen, leukocytosis, elevated procal, abnormal renal function, tachypnea. Pertinent negative findings were negative chest x-ray, negative renal ultrasound. Patient was treated with intravenous fluids, initial empirical antibiotics given sepsis which were changed to oral vancomycin after C. diff was resulted positive. Patient was also treated with wound care for chronic russell mbosacral decubitus ulcers and pressure ulcer of bilateral heels. With the start of treatment, acute kidney injury resolved and lactic acid normalized. Patient did not experience further complications throughout the entire hospital stay and remained clinically and hemodynamically stable. Patient was seen and examined on the day of discharge. On day of discharge, vss and labs unremarkable. All labs, diagnostic workups, discharge plan discussed with patient in details during visit before discharge. All questions and concerns answered to the best of my professional knowledge. Patient was to be discharged to rehab for continued management. However, patient's family refused for discharge to rehab and appealed insurance. Hence, discharged held. Physical Exam General: Generalized weakness, A&Ox2, NAD HEENT: Normocephalic, PERRLA Neck: Supple, trachea midline, no JVD Chest: Clear to auscultation bilaterally Cardiovascular: RRR, S1&S2 GI: Soft and nontender Extremities: No cyanosis/clubbing/or edema BROACHING MACHINE SET UP OPERATOR: No focal deficits Musculoskeletal: No paraspinal muscle tenderness, no muscle spasm Skin: Lumbosacral decubitus ulcers and pressure ulcer of bilateral heels *Problems/Diagnosis: (1) Decubitus ulcer Status: Chronic (2) Sepsis Status: Acute (3) C. difficile colitis Status: Acute Total Time Spent on D/C: > 30 Minutes Date of Service: August 24, 2024 Billing Provider: YESIKA SORENSEN Common Visit Codes: [id number] INP/OBS CARE(HIGH) YESIKA SORENSEN August 24, 2024 19:51
[2024-08-24 22:00] VITALS: BP 129/60; PULSE 63; RESP 15; TEMP 97.8; O2SAT 95
[2024-08-25] VITALS (8 sets, daily range): BP systolic 124–138; BP diastolic 56–72; PULSE 75–98; RESP 13–16; TEMP 97.9–98.5; O2SAT 94–98
[2024-08-25 04:34] LABS: BASOPHILS % (AUTO) 0.1 % (0-1); EOSINOPHILS # (AUTO) 0.1 X10'3 (0-0.9); HEMOGLOBIN 10.8 g/dl (12.0-16.0); LYMPHOCYTES # (AUTO) 1.3 X10'3 (1.1-4.8); MONOCYTES # (AUTO) 1.4 X10'3 (0-0.9); NEUTROPHILS # (AUTO) 10.9 X10'3 (1.8-7.7)
[2024-08-25 04:37] LABS: EOSINOPHILS % (AUTO) 0.6 % (0-6); HEMATOCRIT 32.2 % (35.0-45.0); LYMPHOCYTES % (AUTO) 9.6 % (21-51); MEAN CORPUSCULAR HEMOGLOBIN 31.7 PG (27.0-31.0); MEAN CORPUSCULAR HGB CONC 33.4 g/dL (33.0-36.5); MEAN CORPUSCULAR VOLUME 94.9 FL (78-98); MONOCYTES % (AUTO) 10.1 % (2-12); NEUTROPHILS % (AUTO) 79.6 % (42-75); PLATELET COUNT 458 X10'3 (140-440); RED CELL DISTRIBUTION WIDTH 15.5 % (11.5-14.5); WHITE BLOOD COUNT 13.7 X10'3 (4.5-11.0)
[2024-08-25 05:03] LABS: ALANINE AMINOTRANSFERASE 37 U/L (12-78); ALBUMIN 1.4 G/DL (3.4-5.0); ALBUMIN/GLOBULIN RATIO 0.4 (1.1-1.5); ALKALINE PHOSPHATASE 75 IU/L (46-116); ANION GAP 7 (8-16); ASPARTATE AMINO TRANSFERASE 34 U/L (10-37); BILIRUBIN,TOTAL 0.3 MG/DL (0.1-1.0); BLOOD UREA NITROGEN 45 MG/DL (7-18); BUN/CREATININE RATIO 70.3 (10.0-20.0); CALCIUM 9.2 MG/DL (8.5-10.1); CHLORIDE 114 MMOL/L (99-107); CREATININE 0.64 MG/DL (0.40-0.90); GLUCOSE 185 MG/DL (70-104); POTASSIUM 3.6 MMOL/L (3.5-5.1); SODIUM 144 MMOL/L (135-145); TOTAL CARBON DIOXIDE 22.6 MMOL/L (24-32); TOTAL PROTEIN 4.6 G/DL (6.4-8.2); eCRCL 53 ML/MIN; eGFR 88 ML/MIN
[2024-08-25 06:09] LABS: TOTAL CELLS COUNTED 100
[2024-08-25 06:10] LABS: PLATELET ESTIMATE INCREASED
--- NOTE | 2024-08-25 12:54 | PROGRESS NOTE ---
Daily Progress Note Providers to CC ~ Antibiotic Timeout Antibiotic Ordered?: Yes If Yes, Indications: c.diff Subjective No acute events overnight. Patient examined at bedside. No new complaints, not in acute distress. Patient denies chest pain, sob, palpitations, abdominal pain, n/v/d. Vss, labs notable for slightly uptrended white count. Continued on oral vancomycin for c.diff. Patient does not have diarrhea. Discharge held due to Medicare appeal. Objective Vital Signs Date Time Temp Pulse Resp B/P (MAP) Pulse Ox O2 Delivery O2 Flow Rate FiO2 08/25/24 11:49 96 Room Air* 0 21 08/25/24 10:00 98.3 75 16 124/56 (78) Result Diagram: 08/25/248 08/25/24417 Physical Exam General: Generalized weakness, awake and alert, NAD HEENT: Normocephalic, PERRLA Neck: Supple, trachea midline, no JVD Chest: Clear to auscultation bilaterally Cardiovascular: RRR, S1&S2 GI: Soft and nontender Extremities: No cyanosis/clubbing/or edema UNDERCUTTER: No focal deficits Musculoskeletal: No paraspinal muscle tenderness, no muscle spasm Skin: Warm and intact Problem\Assessment\Plan Problems/Diagnosis: (1) Decubitus ulcer (2) Sepsis (3) C. difficile colitis 89 years old female who came from [facility] for acute altered mental status today with a past medical history of decubitus aerosol in her lumbosacral region which is managing with wound VAC, bilateral heels pressure ulcers, s/p scaral decubitus ulcer debridement and diverting functioning colostomy, s/p right hip arthroplasty for right femoral neck hip fracture, HTN, HLD, AFib with CVR on renal dose of Eliquis, hypothyroidism on levothyroxine, s/p cholecystectomy, appendicectomy, three C sections. # C. diff- POA # Sepsis 2/2 C.diff # UTI- POA # Acute metabolic encephalopathy 2/2 above # Lumbosacral decubitus ulcers with wound VAC- POA # Bilateral pressure heels ulcers- POA -08/23: lactic acid normalized, procal and wbc downtrending; continued on vancomycin p.o., wound care; IV vanco/cefepime discontinued; on isolation -08/24: Discharge held due to Medicare appeal. -08/25: Discharge held due to Medicare appeal. # GRIS on CKD stage III 2/2 sepsis/ vasomotor nephropathy -resolving on IVF # Chronic diastolic heart failure -no clinical signs of fluid overload; LA normalized with IVF # Normocytic anemia -follow lab # Hyperglycemia -A1C 5.6% -continuous daily monitoring and will consider for Insulin to control RBS # Hypertension # HLD # AFib with CVR on Eliquis # Hypothyroidism -Eliquis, metoprolol succ, home levothyroxine CODE STATUS: Full code DVT/VTE prophylaxis: Eliquis Disposition: Discharge back to [facility] Date of Service: August 25, 2024 Billing Provider: YESIKA SORENSEN Common Visit Codes: [id number] INP/OBS CARE(MOD) YESIKA SORENSEN August 25, 2024 12:54
[2024-08-26] MEDS: ondansetron/PF 4mg/2ml inj IV PRN (01:19)
[2024-08-26 04:15] LABS: BASOPHILS % (AUTO) 0.1 % (0-1); HEMOGLOBIN 11.2 g/dl (12.0-16.0); LYMPHOCYTES # (AUTO) 1.2 X10'3 (1.1-4.8); MEAN CORPUSCULAR HEMOGLOBIN 31.5 PG (27.0-31.0); WHITE BLOOD COUNT 21.5 X10'3 (4.5-11.0)
[2024-08-26 04:17] LABS: EOSINOPHILS # (AUTO) 0.1 X10'3 (0-0.9); EOSINOPHILS % (AUTO) 0.3 % (0-6); LYMPHOCYTES % (AUTO) 5.7 % (21-51); MEAN CORPUSCULAR HGB CONC 32.9 g/dL (33.0-36.5); MEAN CORPUSCULAR VOLUME 95.8 FL (78-98); MONOCYTES # (AUTO) 1.4 X10'3 (0-0.9); MONOCYTES % (AUTO) 6.5 % (2-12); NEUTROPHILS # (AUTO) 18.8 X10'3 (1.8-7.7); NEUTROPHILS % (AUTO) 87.4 % (42-75); PLATELET COUNT 445 X10'3 (140-440); RED BLOOD COUNT 3.55 X10'6 (4.20-5.60); RED CELL DISTRIBUTION WIDTH 15.3 % (11.5-14.5)
[2024-08-26 04:35] LABS: ALANINE AMINOTRANSFERASE 46 U/L (12-78); ALBUMIN 1.4 G/DL (3.4-5.0); ALBUMIN/GLOBULIN RATIO 0.5 (1.1-1.5); ALKALINE PHOSPHATASE 89 IU/L (46-116); ANION GAP 10 (8-16); ASPARTATE AMINO TRANSFERASE 45 U/L (10-37); BILIRUBIN,TOTAL 0.3 MG/DL (0.1-1.0); BLOOD UREA NITROGEN 40 MG/DL (7-18); BUN/CREATININE RATIO 59.7 (10.0-20.0); CHLORIDE 115 MMOL/L (99-107); CREATININE 0.67 MG/DL (0.40-0.90); GLUCOSE 251 MG/DL (70-104); POTASSIUM 3.8 MMOL/L (3.5-5.1); SODIUM 148 MMOL/L (135-145); TOTAL CARBON DIOXIDE 22.7 MMOL/L (24-32); TOTAL PROTEIN 4.5 G/DL (6.4-8.2); eCRCL 51 ML/MIN; eGFR 83 ML/MIN
[2024-08-26 04:46] LABS: BANDS% (MANUAL) 22 % (0-10); EOSINOPHILS % (MANUAL) 1 % (0-6); LYMPHOCYTES % (MANUAL) 3 % (21-51); METAMYLEOCYTES% (MANUAL) 2 % (0-0); MONOCYTES % (MANUAL) 9 % (2-12); MYELOCYTES % (MANUAL) 1 % (0-0); NEUTROPHILS % (MANUAL) 62 % (42-75); TOTAL CELLS COUNTED 100
[2024-08-26 04:47] LABS: PLATELET ESTIMATE NORMAL
[2024-08-26 06:00] VITALS: BP 134/62; RESP 16; TEMP 98.3; O2SAT 98
[2024-08-26 07:39] VITALS: BP 136/60; PULSE 92; TEMP 98.2; O2SAT 16
[2024-08-26 08:00] VITALS: RESP 16; O2SAT 98
[2024-08-26] MEDS ORDERED: sulfmethoxaz/trimethoprim inj 10 ML in dextrose 5%-water 240 ML IV SCH (08:00)
[2024-08-26] MEDS: dextrose 5%-water 1,000 ML IV SCH (09:09)
[2024-08-26] MEDS ORDERED: VANCOMYCIN LEVEL IV ONE (10:30)
[2024-08-26] MEDS ORDERED: dextrose 50%-water 50ml dispensing syringe IV PRN ×2 (16:35)
[2024-08-26] MEDS ORDERED: glucagon, human recombinant 1mg kit SUBCUT PRN (16:35)
[2024-08-26] MEDS ORDERED: DEXTROSE 15 GM of carb/4 tabs (each vial/BOTTLE has 4 tablets) PO PRN ×2 (16:35)
[2024-08-26] MEDS ORDERED: insulin glargine (Lantus) VIAL- multi-dose SQ ONE (16:35)
--- NOTE | 2024-08-26 16:40 | PROGRESS NOTE ---
Daily Progress Note Providers to CC ~ Antibiotic Timeout Antibiotic Ordered?: Yes If Yes, Indications: c.diff Subjective No acute events overnight. Patient examined at bedside. No new complaints, not in acute distress. Patient denies chest pain, sob, palpitations, abdominal pain, n/v/d. Vss, labs notable for uptrended white count, though repeat procal downtrended furthermore. Mildly hypernatremic along with elevated Cl, likely secondary to IVNS. NS discontinued, started on D5W. Continued on oral vancomycin for c.diff. Patient does not have diarrhea. Pending discharge to rehab. Objective Vital Signs Date Time Temp Pulse Resp B/P (MAP) Pulse Ox O2 Delivery O2 Flow Rate FiO2 08/26/24 08:00 16 98 Room Air 0.0 21 08/26/24 07:39 98.2 92 136/60 (85) Result Diagram: 08/26/2440608/26/24406 Physical Exam General: Generalized weakness, awake and alert, NAD HEENT: Normocephalic, PERRLA Neck: Supple, trachea midline, no JVD Chest: Clear to auscultation bilaterally Cardiovascular: RRR, S1&S2 GI: Soft and nontender Extremities: No cyanosis/clubbing/or edema PAYROLL TAX ANALYST: No focal deficits Musculoskeletal: No paraspinal muscle tenderness, no muscle spasm Skin: Warm and intact Problem\Assessment\Plan Problems/Diagnosis: (1) Decubitus ulcer (2) Sepsis (3) C. difficile colitis 89 years old female who came from [facility] for acute altered mental status today with a past medical history of decubitus aerosol in her lumbosacral region which is managing with wound VAC, bilateral heels pressure ulcers, s/p scaral decubitus ulcer debridement and diverting functioning colostomy, s/p right hip arthroplasty for right femoral neck hip fracture, HTN, HLD, AFib with CVR on renal dose of Eliquis, hypothyroidism on levothyroxine, s/p cholecystectomy, appendicectomy, three C sections. # C. diff- POA # Sepsis 2/2 C.diff # UTI- POA # Acute metabolic encephalopathy 2/2 above # Lumbosacral decubitus ulcers with wound VAC- POA # Bilateral pressure heels ulcers- POA -08/23: lactic acid normalized, procal and wbc downtrending; continued on vancomycin p.o., wound care; IV vanco/cefepime discontinued; on isolation -08/24: Discharge held due to Medicare appeal. -08/25: Discharge held due to Medicare appeal. # Prerenal GRIS on CKD stage III 2/2 sepsis/ vasomotor nephropathy -resolving on IVF # Chronic diastolic heart failure -no clinical signs of fluid overload; LA normalized with IVF # Normocytic anemia -follow lab # Hyperglycemia -A1C 5.6% -continuous daily monitoring and will consider for Insulin to control RBS -08/26: start Lantus, supplemental insulin # Hypertension # HLD # AFib with CVR on Eliquis # Hypothyroidism -Eliquis, metoprolol succ, home levothyroxine # Hypernatremia -08/26: mildly hypernatremic along with elevated Cl, likely secondary to IVNS. NS discontinued, started on D5W. Code Status: Full code DVT/VTE prophylaxis: Eliquis Disposition: Discharge back to [facility] Date of Service: August 26, 2024 Billing Provider: YESIKA SORENSEN Common Visit Codes: [id number] INP/OBS CARE(MOD) YESIKA SORENSEN August 26, 2024 16:40
[2024-08-26] MEDS: insulin glargine (Lantus) pen - multi-dose SQ ONE (17:27)
[2024-08-26] MEDS: INSULIN LISPRO 100 UNIT/ML INSULN.PEN MULTI-DOSE SQ SCH (17:29)
[2024-08-26 18:00] VITALS: BP 121/62; PULSE 72; RESP 14; TEMP 97.6; O2SAT 98
[2024-08-26 22:00] VITALS: BP 130/69; PULSE 87; RESP 16; TEMP 98.2; O2SAT 94
[2024-08-27 05:55] LABS: BASOPHILS % (AUTO) 0.2 % (0-1); EOSINOPHILS # (AUTO) 0.1 X10'3 (0-0.9); EOSINOPHILS % (AUTO) 0.2 % (0-6); HEMATOCRIT 32.8 % (35.0-45.0); HEMOGLOBIN 10.9 g/dl (12.0-16.0); LYMPHOCYTES # (AUTO) 1.7 X10'3 (1.1-4.8); LYMPHOCYTES % (AUTO) 7.1 % (21-51); MEAN CORPUSCULAR HEMOGLOBIN 31.6 PG (27.0-31.0); MEAN CORPUSCULAR HGB CONC 33.2 g/dL (33.0-36.5); MEAN CORPUSCULAR VOLUME 95.2 FL (78-98); MEAN PLATELET VOLUME 8.2 FL (7.4-10.4); MONOCYTES # (AUTO) 1.4 X10'3 (0-0.9); MONOCYTES % (AUTO) 5.9 % (2-12); NEUTROPHILS # (AUTO) 20.7 X10'3 (1.8-7.7); NEUTROPHILS % (AUTO) 86.6 % (42-75); PLATELET COUNT 372 X10'3 (140-440); RED BLOOD COUNT 3.45 X10'6 (4.20-5.60); RED CELL DISTRIBUTION WIDTH 15.6 % (11.5-14.5); WHITE BLOOD COUNT 23.9 X10'3 (4.5-11.0)
[2024-08-27 06:09] LABS: ALANINE AMINOTRANSFERASE 45 U/L (12-78); ALBUMIN 1.4 G/DL (3.4-5.0); ALBUMIN/GLOBULIN RATIO 0.5 (1.1-1.5); ALKALINE PHOSPHATASE 124 IU/L (46-116); ANION GAP 6 (8-16); ASPARTATE AMINO TRANSFERASE 56 U/L (10-37); BILIRUBIN,TOTAL 0.3 MG/DL (0.1-1.0); BLOOD UREA NITROGEN 35 MG/DL (7-18); BUN/CREATININE RATIO 57.4 (10.0-20.0); CALCIUM 8.8 MG/DL (8.5-10.1); CHLORIDE 112 MMOL/L (99-107); CREATININE 0.61 MG/DL (0.40-0.90); GLUCOSE 216 MG/DL (70-104); POTASSIUM 3.8 MMOL/L (3.5-5.1); SODIUM 142 MMOL/L (135-145); TOTAL CARBON DIOXIDE 23.8 MMOL/L (24-32); TOTAL PROTEIN 4.5 G/DL (6.4-8.2); eCRCL 56 ML/MIN; eGFR > 90 ML/MIN
[2024-08-27 06:39] VITALS: BP 138/70; PULSE 86; RESP 24; TEMP 98.2; O2SAT 98
[2024-08-27 07:25] LABS: PLATELET ESTIMATE NORMAL; TOTAL CELLS COUNTED 100
[2024-08-27 08:00] VITALS: RESP 16; O2SAT 96
[2024-08-27 10:00] VITALS: BP 128/61; PULSE 76; RESP 16; TEMP 98.5; O2SAT 96
--- NOTE | 2024-08-27 12:35 | PROGRESS NOTE ---
Daily Progress Note Providers to CC ~ Antibiotic Timeout Antibiotic Ordered?: Yes If Yes, Indications: c.diff Subjective No acute events overnight. Patient examined at bedside. No new complaints, not in acute distress. Patient denies chest pain, sob, palpitations, abdominal pain, n/v/d. Vss, labs notable for uptrended white count and slightly uptrended procal. Hypernatremia corrected with D5W. Continued on oral vancomycin for c.diff. Patient does not have diarrhea. Consulted ID Dr. Seo who will follow. Objective Vital Signs Date Time Temp Pulse Resp B/P (MAP) Pulse Ox O2 Delivery O2 Flow Rate FiO2 08/27/24 06:39 98.2 86 24 138/70 (92) 98 Room Air 08/26/24 20:00 0.0 21 Result Diagram: 08/27/2451808/27/24518 Physical Exam General: Generalized weakness, awake and alert, NAD HEENT: Normocephalic, PERRLA Neck: Supple, trachea midline, no JVD Chest: Clear to auscultation bilaterally Cardiovascular: RRR, S1&S2 GI: Soft and nontender Extremities: No cyanosis/clubbing/or edema NURSING INFORMATICS ANALYST: No focal deficits Musculoskeletal: No paraspinal muscle tenderness, no muscle spasm Skin: Warm and intact Problem\Assessment\Plan Problems/Diagnosis: (1) Decubitus ulcer (2) Sepsis (3) C. difficile colitis 89 years old female who came from [facility] for acute altered mental status today with a past medical history of decubitus aerosol in her lumbosacral region which is managing with wound VAC, bilateral heels pressure ulcers, s/p scaral decubitus ulcer debridement and diverting functioning colostomy, s/p right hip arthroplasty for right femoral neck hip fracture, HTN, HLD, AFib with CVR on renal dose of Eliquis, hypothyroidism on levothyroxine, s/p cholecystectomy, appendicectomy, three C sections. # C. diff- POA # Sepsis 2/2 C.diff # UTI- POA # Acute metabolic encephalopathy 2/2 above # Lumbosacral decubitus ulcers with wound VAC- POA # Bilateral pressure heels ulcers- POA -08/23: lactic acid normalized, procal and wbc downtrending; continued on vancomycin p.o., wound care; IV vanco/cefepime discontinued; on isolation -08/24: Discharge held due to Medicare appeal. -08/25: Discharge held due to Medicare appeal. -08/27: uptrended white count and slightly uptrended procal Continued on oral vancomycin for c.diff. Patient does not have diarrhea. Repeat CXR and UA. Consulted ID Dr. Seo who will follow. # Prerenal GRIS on CKD stage III 2/2 sepsis/ vasomotor nephropathy -resolving on IVF # Chronic diastolic heart failure -no clinical signs of fluid overload; LA normalized with IVF # Normocytic anemia -follow lab # Hyperglycemia -A1C 5.6% -continuous daily monitoring and will consider for Insulin to control RBS -08/26: start Lantus, supplemental insulin # Hypertension # HLD # AFib with CVR on Eliquis # Hypothyroidism -Eliquis, metoprolol succ, home levothyroxine # Hypernatremia -08/26: mildly hypernatremic along with elevated Cl, likely secondary to IVNS. NS discontinued, started on D5W -08/27: Hypernatremia corrected with D5W Code Status: Full code DVT/VTE prophylaxis: Eliquis Disposition: Discharge back to [facility] Date of Service: August 27, 2024 Billing Provider: YESIKA SORENSEN Common Visit Codes: [id number] INP/OBS CARE(MOD) YESIKA SORENSEN August 27, 2024 12:35
[2024-08-27] MEDS: ringers solution, lacted 1,000 ML IV ONE ×2 (14:16→17:48)
[2024-08-27] MEDS: ringers solution, lacted 1,000 ML IV SCH (14:16)
[2024-08-27] MEDS: vancomycin 125 MG/5 ML UD oral SOLN.RECON 5mL oral syringe (FIRVANQ) PO ONE (15:07)
[2024-08-27 18:00] VITALS: BP 132/67; PULSE 78; RESP 18; TEMP 98.6; O2SAT 95
--- NOTE | 2024-08-27 19:04 | RADIOLOGY REPORT ---
Clinical History sepsis, dementia Comparison CXR on 08/21/2024, 1 images. Without Contrast MARTITA MUHAMMAD, [id number] Comparison: 08/21/24 Technique: Single view portable chest x-ray Findings: Interval development of right basilar atelectasis. The right CP angle is blunted which could be due to pleural effusion. No pneumothorax. Atherosclerotic calcification of thoracic aorta. The cardiomediastinal silhouette is otherwise unrem arkable for an AP view. No acute osseous abnormality. The imaged part of the upper abdomen reveals cholecystectomy. Impression: Small right pleural effusion with adjacent atelectasis, superimposed pneumonia cannot be excluded This report was electronically signed by Erick Bae MD on 08/27/2024 7:01:16 PM.
[2024-08-27 20:00] VITALS: RESP 18; O2SAT 95
[2024-08-27] MEDS: vancomycin 125 MG/5 ML UD oral SOLN.RECON 5mL oral syringe (FIRVANQ) PO SCH (21:33)
[2024-08-27] MEDS: VANCOMYCIN IR SCH (21:33)
[2024-08-27] MEDS: NORMAL SALINE IR SCH (21:33)
[2024-08-27] MEDS: diatr meglu/diatrizoate 30ml oral sol.-(3 dose) bottle PO SCH (21:35)
[2024-08-27 22:00] VITALS: BP 133/74; PULSE 90; RESP 24; TEMP 98.1; O2SAT 95
--- NOTE | 2024-08-27 22:29 | CONSULTATION REPORT ---
Consult Consult Consultation Reason for Consult: CDI and worsening sepsis Consulting Provider: Michael Salmon Antibiotic Days: PO Vanco 5 Lines: PIV Micro: 08/21 Blood- negative 08/21 Urine- Yeast 08/27 Blood- ngtd HPI: Patient is an 89 year old bedbound female with past medical history of a sacral decubiti and recent diverting ostomy who was tranferred to [facility] on 08/21 from [facility] for altered mental status. Upon arrival, she was found to have leukocytosis/fever and so she was admitted for sepsis and started on broad spectrum therapy. Fairly quickly, C Diff testing came back positive so she was given PO Vanco and her stools into her ostomy bag are now gravy consistency. Despite this initial improvement, however, her clinical status worsened today. ID is consulted for a lactic acid of 2+ to assist with antibiotic recommendations for another source. On today's exam, her stomach and stoma are distended though she does not wince to palpation. Her decub is noted but appears more pressure than infected Past Medical/Surgical History: HTN, HLD, AFib with RVR, hypothyroidism, right hip arthroplasty for right femoral neck hip fracture, cholecystectomy, appendicectomy, three C sections. Current Medications Medications (Trade) Dose Ordered Sig/Keith Route PRN Reason Start Time Stop Time Status Last Admin Dose Admin Ceftriaxone Sodium/Dextrose 50 ml @ 100 mls/hr ONCE ONCE IV 08/21/24 23:20 08/21/24 23:49 DC 08/21/24 23:31 100 MLS/HR Lactated Ringer's 1,000 ml @ 1,000 mls/hr ONCE ONCE IV 08/21/24 23:30 08/22/24 00:29 DC 08/21/24 23:39 1,000 MLS/HR Ondansetron HCl (Zofran 4mg/2ml vial) 4 mg Q6H PRN IV nausea/vomiting 08/21/24 23:55 08/26/24 01:19 4 MG Sodium Chloride 1,000 ml @ 100 mls/hr Q10H IV 08/21/24 23:55 08/26/24 07:27 DC 08/26/24 05:06 100 MLS/HR Apixaban (Eliquis 2.5mg tablet) 2.5 mg Q12H PO 08/22/24 08:00 08/27/24 21:35 2.5 MG Metoprolol Succinate (Toprol XL (24-hour) tablet) 25 mg DAILY PO 08/22/24 08:00 08/27/24 08:35 25 MG Lactated Ringer's 1,000 ml @ 1,000 mls/hr ONCE ONCE IV 08/22/24 00:25 08/22/24 01:24 DC 08/22/24 00:52 1,000 MLS/HR Albumin Human (albumin (human) 25% 100ml IV) 100 ml ONCE ONCE IV 08/22/24 02:55 08/22/24 03:02 DC 08/22/24 04:05 100 ML Sodium Chloride 500 ml @ 500 mls/hr ONCE ONCE IV 08/22/24 02:55 08/22/24 03:54 DC 08/22/24 03:14 500 MLS/HR Cefepime/Dextrose 50 ml @ 100 mls/hr Q8H IV 08/22/24 06:00 08/22/24 14:42 DC 08/22/24 05:44 100 MLS/HR Amiodarone HCl (Cordarone 100mg tablet) 100 mg DAILY PO 08/22/24 10:49 08/27/24 08:36 100 MG Levothyroxine Sodium (Synthroid tablet) 112 mcg DAILY PO 08/22/24 10:50 08/27/24 08:44 112 MCG Vancomycin HCl 250 ml @ 166 mls/hr ONCE ONCE IV 08/22/24 10:55 08/22/24 12:25 DC 08/22/24 11:17 166 MLS/HR Vancomycin HCl (vancomycin 125mg/5ml oral solution (Firvanq)) 125 mg Q6H PO 08/22/24 14:00 08/27/24 14:09 DC 08/27/24 08:35 125 MG Cefepime/Dextrose 50 ml @ 100 mls/hr DAILY IV 08/22/24 14:42 08/23/24 13:50 DC 08/23/24 12:53 100 MLS/HR Lactose (Ensure Enlive - 237ML) 1 can TIDWM PO 08/23/24 18:00 08/27/24 18:00 1 CAN Dextrose 1,000 ml @ 50 mls/hr Q20H IV 08/26/24 07:30 08/27/24 09:57 DC 08/27/24 04:55 50 MLS/HR Insulin Human Lispro (Humalog Kwikpen U-100 (100 Unit/ ml) 3ml) SUPPLEMENTAL INSULIN To ... ACHS SQ 08/26/24 17:00 08/27/24 21:50 3 UNIT Insulin Glargine (Lantus inj) 5 unit ONCE ONCE SQ 08/26/24 16:55 08/26/24 16:56 DC 08/26/24 17:27 5 UNIT Lactated Ringer's 1,000 ml @ 100 mls/hr Q10H IV 08/27/24 09:55 08/27/24 14:16 100 MLS/HR Lactated Ringer's 1,000 ml @ 1,000 mls/hr ONCE ONCE IV 08/27/24 10:10 08/27/24 11:09 DC 08/27/24 14:16 1,000 MLS/HR Vancomycin HCl (vancomycin 125mg/5ml oral solution (Firvanq)) 500 mg Q6H PO 08/27/24 14:09 08/27/24 21:33 500 MG Vancomycin HCl 500 mg/Sodium Chloride 500 ml @ 500 mls/hr Q6H IR 08/27/24 20:00 08/27/24 21:33 500 MLS/HR Vancomycin HCl (vancomycin 125mg/5ml oral solution (Firvanq)) 250 mg ONCE ONCE PO 08/27/24 14:35 08/27/24 14:36 DC 08/27/24 15:07 250 MG Diatrizoate Meglum/ Diatrizoate Sod (Gastrografin 66-10 oral solution) 10 ml TID@07,21 PO 08/27/24 21:00 08/28/24 21:01 08/27/24 21:35 10 ML Lactated Ringer's 1,000 ml @ 1,000 mls/hr ONCE ONCE IV 08/27/24 16:45 08/27/24 17:44 DC 08/27/24 17:48 1,000 MLS/HR Social History: Transferred from [facility] Family History: Noncontributory ROS: As in HPI, otherwise negative Objective: Vitals: Afebrile, 87, 16, 130/69, 94% on RA General: Alert, nonverbal, NAD HEENT: NC/AT, normal conjunctiva, no oral lesions CV: Regular Resp: Clear anteriorly Abd: Soft, nontender but distended and there is gas in her ostomy Ext: No edema Lines: PIV ok Laboratory Tests 08/27/24 05:19 08/21 CXR 1. Slightly limited study as described, no evidence of acute cardiopulmonary disease. Assessment: // Severe C Diff // Leukocytosis // Acute encephalopathy // Decubiti // Bedbound // Antibiotic Allergies: PCN listed causing rash Plan: - Continue PO Vanco but change dose to 500 mg Q6 hours - Since I am worried about her bowel discontinuity, add IN Vanco as well - CT abdomen to assess for colitis - Repeat blood cultures to ensure no other source of sepsis - Limit other systemic antibiotics as able - Monitor WBC count, Cr, Stool output - Wound care - Physcial therapy - Thank you for the consult, will continue to follow AN NICHOLSON DO August 27, 2024 22:29
[2024-08-28] VITALS (7 sets, daily range): BP systolic 103–134; BP diastolic 63–80; PULSE 75–99; RESP 13–24; TEMP 97–98.3; O2SAT 92–99
[2024-08-28 05:56] LABS: BASOPHILS % (AUTO) 0.1 % (0-1); EOSINOPHILS # (AUTO) 0.1 X10'3 (0-0.9); EOSINOPHILS % (AUTO) 0.3 % (0-6); HEMATOCRIT 33.8 % (35.0-45.0); HEMOGLOBIN 11.3 g/dl (12.0-16.0); LYMPHOCYTES # (AUTO) 1.8 X10'3 (1.1-4.8); LYMPHOCYTES % (AUTO) 6.3 % (21-51); MEAN CORPUSCULAR HEMOGLOBIN 31.4 PG (27.0-31.0); MEAN CORPUSCULAR HGB CONC 33.3 g/dL (33.0-36.5); MEAN CORPUSCULAR VOLUME 94.4 FL (78-98); MEAN PLATELET VOLUME 8.5 FL (7.4-10.4); MONOCYTES # (AUTO) 1.6 X10'3 (0-0.9); MONOCYTES % (AUTO) 5.5 % (2-12); NEUTROPHILS # (AUTO) 24.9 X10'3 (1.8-7.7); NEUTROPHILS % (AUTO) 87.8 % (42-75); PLATELET COUNT 317 X10'3 (140-440); RED BLOOD COUNT 3.58 X10'6 (4.20-5.60); RED CELL DISTRIBUTION WIDTH 15.9 % (11.5-14.5)
[2024-08-28 06:04] LABS: WHITE BLOOD COUNT 28.3 X10'3 (4.5-11.0)
[2024-08-28 06:41] LABS: ALANINE AMINOTRANSFERASE 66 U/L (12-78); ALBUMIN 1.4 G/DL (3.4-5.0); ALBUMIN/GLOBULIN RATIO 0.4 (1.1-1.5); ALKALINE PHOSPHATASE 119 IU/L (46-116); ANION GAP 6 (8-16); ASPARTATE AMINO TRANSFERASE 88 U/L (10-37); BILIRUBIN,TOTAL 0.3 MG/DL (0.1-1.0); BLOOD UREA NITROGEN 28 MG/DL (7-18); BUN/CREATININE RATIO 47.5 (10.0-20.0); CALCIUM 8.6 MG/DL (8.5-10.1); CHLORIDE 109 MMOL/L (99-107); CREATININE 0.59 MG/DL (0.40-0.90); GLUCOSE 192 MG/DL (70-104); SODIUM 141 MMOL/L (135-145); TOTAL CARBON DIOXIDE 26.2 MMOL/L (24-32); TOTAL PROTEIN 4.6 G/DL (6.4-8.2); VANCOMYCIN,TROUGH 0.2 ug/mL (10.0-20.0); eCRCL 58 ML/MIN; eGFR > 90 ML/MIN
--- NOTE | 2024-08-28 07:06 | PROGRESS NOTE ---
Daily Progress Note Providers to CC ~ Antibiotic Timeout Antibiotic Ordered?: Yes If Yes, Indications: PNA, c.diff Subjective No acute events overnight. Patient examined at bedside. No new complaints. Patient denies chest pain, sob, palpitations, abdominal pain, n/v/d. Vss, labs notable for uptrended white count, CXR shows pneumonia, etiology likely aspiration in the setting of baseline dementia, given bolus IVF and a dose of levofloxacin. Pending CT abdomen/pelvis. 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 difficile colitis 89 years old female who came from [facility] for acute altered mental status today with a past medical history of decubitus aerosol in her lumbosacral region which is managing with wound VAC, bilateral heels pressure ulcers, s/p scaral decubitus ulcer debridement and diverting functioning colostomy, s/p right hip arthroplasty for right femoral neck hip fracture, HTN, HLD, AFib with CVR on renal dose of Eliquis, hypothyroidism on levothyroxine, s/p cholecystectomy, appendicectomy, three C sections. # C. diff- POA # Sepsis 2/2 C.diff # UTI- POA # Acute metabolic encephalopathy 2/2 above # Lumbosacral decubitus ulcers with wound VAC- POA # Bilateral pressure heels ulcers- POA # Aspiration PNA- not POA # Dementia -08/23: lactic acid normalized, procal and wbc downtrending; continued on vancomycin p.o., wound care; IV vanco/cefepime discontinued; on isolation -08/24: Discharge held due to Medicare appeal. -08/25: Discharge held due to Medicare appeal. -08/27: uptrended white count and slightly uptrended procal Continued on oral vancomycin for c.diff. Patient does not have diarrhea. Repeat CXR and UA. Consulted ID Dr. Seo, oral vanco dose increased. -08/28: CXR shows pneumonia, etiology likely aspiration in the setting of baseline dementia, start bolus IVF, levofloxacin; Pending CT abd/pelv # Prerenal GRIS on CKD stage III 2/2 sepsis/ vasomotor nephropathy -resolving on IVF # Chronic diastolic heart failure -no clinical signs of fluid overload; LA normalized with IVF # Normocytic anemia -follow lab # Hyperglycemia -A1C 5.6% -continuous daily monitoring and will consider for Insulin to control RBS -08/26: start Lantus, supplemental insulin # Hypertension # HLD # AFib with CVR on Eliquis # Hypothyroidism -Eliquis, metoprolol succ, home levothyroxine # Hypernatremia -08/26: mildly hypernatremic along with elevated Cl, likely secondary to IVNS. NS discontinued, started on D5W -08/27: Hypernatremia corrected with D5W Code Status: DNR DVT/VTE prophylaxis: Eliquis Disposition: Rehab I spent a total of 30 minutes discussing Advanced Care Planning measures with the patient's family. Patient was full code by default on admission due to encephalopathy. POLST form filled out by patient, reviewed. Patient wishes DNR Date of Service: August 28, 2024 Billing Provider: YESIKA SORENSEN Common Visit Codes: [id number] INP/OBS CARE(HIGH) Secondary Visit Codes: [id number] CARE PLAN 30 MINUTES YESIKA SORENSEN August 28, 2024 07:06
[2024-08-28] MEDS: levoFLOXACIN-Levaquin 750MG/D5 150 ML IV SCH (07:47)
[2024-08-28] MEDS: ringers solution, lacted 1,000 ML IV ONE ×2 (09:38→12:28)
[2024-08-28] MEDS ORDERED: iohexol 300mg/ml 100ml inj. ONE (10:11)
[2024-08-28] MEDS: VANCOMYCIN 1,500MG in normal saline IV soln 300 ML IV ONE (11:11)
--- NOTE | 2024-08-28 11:43 | RADIOLOGY REPORT ---
Indication: c diff - eval the rectal stump Technique: CT axial images of the abdomen and pelvis are obtained with intravenous contrast. Coronal and sagittal reformats were obtained. Radiation Dose Information: CTDI volume is 17.2 mGy. Dose-length product is 940 mGy*cm Comparison: CT ABDOMEN PELVIS on DOS: 03/24/20, also present FINDINGS: Small pericardial effusion. Coronary artery calcification disease. Moderate bilateral pleural effus ions. Bibasilar consolidation and atelectasis. Adrenal glands, spleen unremarkable. Pancreatic parenchymal atrophy. Cholecystectomy. No enhancing he patic lesion. The kidneys demonstrate no hydronephrosis. Nonobstructing right renal calculus measuring 4 mm. Right renal upper pole wedge-shaped enhancement defect measuring 1.2 cm. Nonobstructing left renal calculi measuring up to 2 mm. Small hiatal hernia. Stomach is partially distended. The small bowel loops are normal in caliber. Rectal catheter. Postsurgical changes at the sigmoid colon. Left colostomy. Extensive bowel wall paul a, mucosal hyperemia and thickening involving the entirety of the colon. No evidence for bowel wall t hickening of the stump Abdominal aortic atherosclerotic disease. Bladder is partially decompressed by Estrella catheter. Uterin e calcified myelomas period. Mesenteric edema. Small to moderate volume ascites fluid. Soft tissue edema / anasarca. Right anterior abdominal wall soft tissue emphysema. [id number] thoracolumbar degenerative disc disease. Sacral decubitus ulcer is again noted. Right hip arthroplasty. . IMPRESSION: 1. Left colostomy. Diffuse bowel wall edema and thickening of the ascending, transverse and descendi ng colon with mucosal hyperemia, consistent with patient's history of colitis/ c diff colitis. This e xtends to the colostomy. Other considerations include inflammatory etiologies. 2. No evidence for abnormal bowel wall thickening of the rectal stump. 3. Mesenteric edema. Small to moderate volume of ascites fluid. 4. Bilateral pleural effusions. Bibasilar consolidation / atelectasis. 5. Sacral decubitus ulcer. Right renal upper pole wedge-shaped enhancement defect measuring 1.2 cm. Differential considerations include renal infarction, pyelonephritis , acute tubular necrosis. 6. Other findings as described.
[2024-08-29] MEDS: VANCOMYCIN 2GM/400ML H20 (PEG) 400 ML IV ONE (01:15)
[2024-08-29] MEDS ORDERED: vancomycin inj. 750 MG in normal saline 250ml IV soln 250 ML IV SCH (01:15)
[2024-08-29 06:00] VITALS: BP 128/62; PULSE 83; RESP 16; TEMP 97.7; O2SAT 91
[2024-08-29 06:07] VITALS: O2SAT 92
[2024-08-29 06:59] LABS: BASOPHILS % (AUTO) 0.1 % (0-1); EOSINOPHILS % (AUTO) 0.2 % (0-6); HEMATOCRIT 33.8 % (35.0-45.0); HEMOGLOBIN 11.1 g/dl (12.0-16.0); LYMPHOCYTES # (AUTO) 1.7 X10'3 (1.1-4.8); LYMPHOCYTES % (AUTO) 6.2 % (21-51); MEAN CORPUSCULAR HEMOGLOBIN 31.3 PG (27.0-31.0); MEAN CORPUSCULAR HGB CONC 32.9 g/dL (33.0-36.5); MEAN CORPUSCULAR VOLUME 95.1 FL (78-98); MEAN PLATELET VOLUME 8.4 FL (7.4-10.4); MONOCYTES # (AUTO) 1.1 X10'3 (0-0.9); NEUTROPHILS # (AUTO) 23.8 X10'3 (1.8-7.7); NEUTROPHILS % (AUTO) 89.5 % (42-75); PLATELET COUNT 252 X10'3 (140-440); RED BLOOD COUNT 3.56 X10'6 (4.20-5.60); RED CELL DISTRIBUTION WIDTH 15.8 % (11.5-14.5)
[2024-08-29 07:05] LABS: WHITE BLOOD COUNT 26.6 X10'3 (4.5-11.0)
[2024-08-29 07:33] LABS: ALANINE AMINOTRANSFERASE 62 U/L (12-78); ALBUMIN 1.3 G/DL (3.4-5.0); ALBUMIN/GLOBULIN RATIO 0.5 (1.1-1.5); ALKALINE PHOSPHATASE 113 IU/L (46-116); ANION GAP 6 (8-16); ASPARTATE AMINO TRANSFERASE 71 U/L (10-37); BILIRUBIN,TOTAL 0.4 MG/DL (0.1-1.0); BLOOD UREA NITROGEN 31 MG/DL (7-18); BUN/CREATININE RATIO 77.5 (10.0-20.0); CALCIUM 8.5 MG/DL (8.5-10.1); CHLORIDE 109 MMOL/L (99-107); GLUCOSE 144 MG/DL (70-104); POTASSIUM 3.7 MMOL/L (3.5-5.1); SODIUM 141 MMOL/L (135-145); TOTAL CARBON DIOXIDE 26.3 MMOL/L (24-32); TOTAL PROTEIN 4.1 G/DL (6.4-8.2); eCRCL 86 ML/MIN; eGFR > 90 ML/MIN
[2024-08-29 10:07] LABS: TOTAL CELLS COUNTED 100
[2024-08-29 10:09] LABS: PLATELET ESTIMATE NORMAL
[2024-08-29 11:00] VITALS: BP 129/54; PULSE 77; RESP 20; TEMP 97.7; O2SAT 82
[2024-08-29] MEDS ORDERED: vancomycin/NS 1 GM ADD-VANTAGE 250 ML IV SCH ×2 (11:30→13:00)
--- NOTE | 2024-08-29 12:19 | PROGRESS NOTE ---
Daily Progress Note Providers to CC ~ Antibiotic Timeout Antibiotic Ordered?: Yes If Yes, Indications: c.diff Subjective No acute events overnight. Patient examined at bedside. No new complaints. Patient denies chest pain, sob, palpitations, abdominal pain, n/v/d. Vss, labs notable for persistently uptrended white count but normalized lactic acid. Blood culture gram positive cocci, repeating another blood culture. Continued on oral vancomycin. 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 difficile colitis 89 years old female who came from [facility] for acute altered mental status today with a past medical history of decubitus aerosol in her lumbosacral region which is managing with wound VAC, bilateral heels pressure ulcers, s/p scaral decubitus ulcer debridement and diverting functioning colostomy, s/p right hip arthroplasty for right femoral neck hip fracture, HTN, HLD, AFib with CVR on renal dose of Eliquis, hypothyroidism on levothyroxine, s/p cholecystectomy, appendicectomy, three C sections. # C. diff- POA # Sepsis 2/2 C.diff # UTI- POA # Acute metabolic encephalopathy 2/2 above # Lumbosacral decubitus ulcers with wound VAC- POA # Bilateral pressure heels ulcers- POA # Aspiration PNA- not POA # Dementia # Presence of colostomy -08/23: lactic acid normalized, procal and wbc downtrending; continued on vancomycin p.o., wound care; IV vanco/cefepime discontinued; on isolation -08/24: Discharge held due to Medicare appeal. -08/25: Discharge held due to Medicare appeal. -08/27: uptrended white count and slightly uptrended procal Continued on oral vancomycin for c.diff. Patient does not have diarrhea. Repeat CXR and UA. Consulted ID Dr. Seo, oral vanco dose increased. -08/28: CXR shows pneumonia, etiology likely aspiration in the setting of baseline dementia, start bolus IVF, given a dose of levofloxacin, discontinued per ID recommendation; Pending CT abd/pelv -08/29: normalized lactic acid, white count slightly dropped # Prerenal GRIS on CKD stage III 2/2 sepsis/ vasomotor nephropathy -resolving on IVF # Chronic diastolic heart failure -no clinical signs of fluid overload; LA normalized with IVF # Normocytic anemia -follow lab # Hyperglycemia -A1C 5.6% -continuous daily monitoring and will consider for Insulin to control RBS -08/26: start Lantus, supplemental insulin # Hypertension # HLD # AFib with CVR on Eliquis # Hypothyroidism -Eliquis, metoprolol succ, home levothyroxine # Hypernatremia -08/26: mildly hypernatremic along with elevated Cl, likely secondary to IVNS. NS discontinued, started on D5W -08/27: Hypernatremia corrected with D5W Code Status: DNR DVT/VTE prophylaxis: Eliquis Disposition: Rehab I spent a total of 30 minutes discussing Advanced Care Planning measures with the patient's family. Patient was full code by default on admission due to encephalopathy. POLST form filled out by patient, reviewed. Patient wishes DNR Date of Service: August 29, 2024 Billing Provider: YESIKA SORENSEN Common Visit Codes: [id number] INP/OBS CARE(HIGH) YESIKA SORENSEN August 29, 2024 12:19
[2024-08-29 18:30] VITALS: BP 118/58; PULSE 86; RESP 20; TEMP 97.5; O2SAT 92
[2024-08-29 20:00] VITALS: RESP 20; O2SAT 92
--- NOTE | 2024-08-29 20:11 | PROGRESS NOTE ---
Progress Note ID Providers to CC ~ Progress Note Progress Note: Antibiotic Days: PO Vanco 7, IV Vanco 0 S/P Levaquin Lines: PIV Micro: 08/21 Blood- negative 08/21 Urine- Yeast 08/27 Blood- 04/14 GPC in clusters 08/29 Blood- ngtd Subjective: Patient was started on IV Vanc for GPC in blood, too early to say if this is a contaminant. Her abdomen feels softer though her CT scan was read as colon inflammation Objective: Vitals: Afebrile, 83, 16, 128/62, 91% on RA General: Alert,NAD CV: Regular Resp: Clear anteriorly Abd: Soft, nontender Ext: No edema Lines: PIV ok Laboratory Tests 08/29/24 06:37 08/28 CT A/P 1. Left colostomy. Diffuse bowel wall edema and thickening of the ascending, transverse and descending colon with mucosal hyperemia, consistent with patient's history of colitis/ c diff colitis. This extends to the colostomy. Other considerations include inflammatory etiologies. 2. No evidence for abnormal bowel wall thickening of the rectal stump. 3. Mesenteric edema. Small to moderate volume of ascites fluid. 4. Bilateral pleural effusions. Bibasilar consolidation / atelectasis. 5. Sacral decubitus ulcer. Right renal upper pole wedge-shaped enhancement defect measuring 1.2 cm. Differential considerations include renal infarction, pyelonephritis , acute tubular necrosis. 6. Other findings as described. Assessment: // Severe C Diff // Leukocytosis, remains high. // 1/2 Blood cultures positive for GPC in clusters, of unclear significance yet // Renal enhancement, wedge shaped // Decubiti // Bedbound // Antibiotic Allergies: PCN listed causing rash Plan: - Continue PO Vanco and HI Vanco for CDI - OK for IV Vanco until significance of blood cultures is known - Follow up repeat blood cultures - Limit other systemic antibiotics as able - Monitor WBC count, Cr, Stool output - Wound care - Physcial therapy - Will continue to follow AN NICHOLSON DO August 29, 2024 20:11
[2024-08-29] MEDS: acetaminophen 325mg tablet PO PRN (21:32)
[2024-08-29 22:00] VITALS: BP 130/54; PULSE 87; RESP 17; TEMP 97.5; O2SAT 91
[2024-08-29] MEDS ORDERED: guaiFENesin/DM 10ml UD oral syrup PO PRN (22:35)
[2024-08-30 03:23] VITALS: O2SAT 18
[2024-08-30 04:21] LABS: BASOPHILS % (AUTO) 0.1 % (0-1); EOSINOPHILS # (AUTO) 0.1 X10'3 (0-0.9); EOSINOPHILS % (AUTO) 0.5 % (0-6); HEMATOCRIT 29.5 % (35.0-45.0); HEMOGLOBIN 9.7 g/dl (12.0-16.0); LYMPHOCYTES # (AUTO) 1.4 X10'3 (1.1-4.8); LYMPHOCYTES % (AUTO) 6.9 % (21-51); MEAN CORPUSCULAR HEMOGLOBIN 31.3 PG (27.0-31.0); MEAN CORPUSCULAR VOLUME 94.9 FL (78-98); MEAN PLATELET VOLUME 8.4 FL (7.4-10.4); MONOCYTES % (AUTO) 4.8 % (2-12); NEUTROPHILS # (AUTO) 17.8 X10'3 (1.8-7.7); NEUTROPHILS % (AUTO) 87.7 % (42-75); PLATELET COUNT 226 X10'3 (140-440); RED BLOOD COUNT 3.11 X10'6 (4.20-5.60); RED CELL DISTRIBUTION WIDTH 15.7 % (11.5-14.5); WHITE BLOOD COUNT 20.3 X10'3 (4.5-11.0)
[2024-08-30 04:39] LABS: ALANINE AMINOTRANSFERASE 51 U/L (12-78); ALBUMIN 1.2 G/DL (3.4-5.0); ALBUMIN/GLOBULIN RATIO 0.4 (1.1-1.5); ALKALINE PHOSPHATASE 103 IU/L (46-116); ANION GAP 5 (8-16); ASPARTATE AMINO TRANSFERASE 59 U/L (10-37); BILIRUBIN,TOTAL 0.3 MG/DL (0.1-1.0); BLOOD UREA NITROGEN 39 MG/DL (7-18); CALCIUM 8.2 MG/DL (8.5-10.1); CHLORIDE 108 MMOL/L (99-107); GLUCOSE 190 MG/DL (70-104); POTASSIUM 3.6 MMOL/L (3.5-5.1); SODIUM 138 MMOL/L (135-145); TOTAL CARBON DIOXIDE 25.1 MMOL/L (24-32); TOTAL PROTEIN 3.9 G/DL (6.4-8.2); eCRCL 57 ML/MIN; eGFR > 90 ML/MIN
[2024-08-30 04:55] LABS: ANISOCYTOSIS 1+; PLATELET ESTIMATE NORMAL; TOTAL CELLS COUNTED 100
[2024-08-30 06:33] VITALS: BP 133/61; PULSE 74; RESP 23; TEMP 97; O2SAT 94
[2024-08-30] MEDS: acetylcysteine 200 MG/ml 4ml vial PO SCH (07:48)
[2024-08-30 08:30] VITALS: RESP 23; O2SAT 94
--- NOTE | 2024-08-30 08:34 | PROGRESS NOTE ---
Daily Progress Note Providers to CC ~ Antibiotic Timeout Antibiotic Ordered?: Yes Subjective CHIEF COMPLAINT NONE PATIENT'S SON IS AT THE BEDSIDE WHO STATES PATIENT NEVER COMPLAINS ABOUT ANYTHING HE WOULD JUST LIKE TO ASK QUESTIONS AND BE UPDATED I TRIED ANSWERING ALL HIS QUESTIONS TO THE BEST OF MY ABILITY Objective Vital Signs Date Time Temp Pulse Resp B/P (MAP) Pulse Ox O2 Delivery O2 Flow Rate FiO2 08/30/24 06:33 97.0 74 23 133/61 (85) 94 Nasal Cannula 2.0 08/30/24 03:23 21 Result Diagram: 08/30/24 0400 08/30/24 0400 PATIENT IS ALERT AND ORIENTED X2 IN NO ACUTE DISTRESS SLOW TO RESPOND BUT RESPONDS APPROPRIATELY HEENT NORMOCEPHALIC NONTRAUMATIC HEAD POSITIVE PALLOR CVS FIRST AND SECOND HEART SOUNDS ARE REGULAR RATE RHYTHM NO MURMURS GALLOPS OR RUBS RESPIRATORY SYSTEM BILATERAL BASILAR CRACKLES MINIMAL ABDOMEN IS SOFT DISTENDED BOWEL SOUNDS ARE HYPERACTIVE NONTENDER NO MASSES APPRECIATED EXTREMITIES NO CLUBBING CYANOSIS EDEMA Problem\Assessment\Plan Problems/Diagnosis: (1) Decubitus ulcer (2) Sepsis (3) C. difficile colitis 89 years old female who came from [facility] for acute altered mental status today with a past medical history of decubitus aerosol in her lumbosacral region which is managing with wound VAC, bilateral heels pressure ulcers, s/p scaral decubitus ulcer debridement and diverting functioning colostomy, s/p right hip arthroplasty for right femoral neck hip fracture, HTN, HLD, AFib with CVR on renal dose of Eliquis, hypothyroidism on levothyroxine, s/p cholecystectomy, appendicectomy, three C sections. # C. diff- POA # Sepsis 2/2 C.diff # UTI- POA # Acute metabolic encephalopathy 2/2 above # Lumbosacral decubitus ulcers with wound VAC- POA # Bilateral pressure heels ulcers- POA # ?? Aspiration PNA- not POA # Dementia # Presence of colostomy -08/23: lactic acid normalized, procal and wbc downtrending; continued on vancomycin p.o., wound care; IV vanco/cefepime discontinued; on isolation ID CONSULT APPRECIATED -08/24: Discharge held due to Medicare appeal. -08/25: Discharge held due to Medicare appeal. -08/27: uptrended white count and slightly uptrended procal Continued on oral vancomycin for c.diff. Patient does not have diarrhea. Repeat CXR and UA. Consulted ID Dr. Seo, oral vanco dose increased. -08/28: CXR shows pneumonia, etiology likely aspiration in the setting of baseline dementia, start bolus IVF, given a dose of levofloxacin, discontinued per ID recommendation; Pending CT abd/pelv -08/29: normalized lactic acid, white count slightly dropped # Prerenal GRIS on CKD stage III 2/2 sepsis/ vasomotor nephropathy -resolving on IVF # Chronic diastolic heart failure -no clinical signs of fluid overload; LA normalized with IVF # Normocytic anemia -follow lab # Hyperglycemia -A1C 5.6% -continuous daily monitoring and will consider for Insulin to control RBS -08/26: start Lantus, supplemental insulin # Hypertension # HLD # AFib with CVR on Eliquis # Hypothyroidism -Eliquis, metoprolol succ, home levothyroxine # Hypernatremia -08/26: mildly hypernatremic along with elevated Cl, likely secondary to IVNS. NS discontinued, started on D5W -08/27: Hypernatremia corrected with D5W Code Status: DNR DVT/VTE prophylaxis: Eliquis Disposition: Rehab Patient wishes DNR Date of Service: August 30, 2024 Billing Provider: RAJESH JUNIOR MD Common Visit Codes: [id number] INP/OBS CARE(HIGH) RAJESH JUNIOR MD August 30, 2024 08:34
[2024-08-30] MEDS ORDERED: VANCOMYCIN LEVEL IV ONE (12:30)
[2024-08-30 12:39] VITALS: BP 131/59; PULSE 81; RESP 20; TEMP 97.9; O2SAT 95
--- NOTE | 2024-08-30 13:49 | RADIOLOGY REPORT ---
EXAM: DI CHEST,SINGLE VIEW Indication: COUGH Technique: Single frontal view of the chest was obtained Comparison: DI CHEST,SINGLE VIEW on DOS: 08/27/24, DI CHEST,SINGLE VIEW on DOS: 08/21/24, DI CHEST,SING LE VIEW on DOS: 08/06/24, DI CHEST,SINGLE VIEW on DOS: 07/05/24 FINDINGS: Lines and Tubes: None Lungs: Small bilateral pleural effusions. Multifocal airspace opacities. No pneumothorax. Cardiomediastinal contours: Unremarkable Bones: No acute osseous abnormality. IMPRESSION: Small bilateral pleural effusions. Multifocal airspace opacities.
[2024-08-30 18:00] VITALS: BP 142/61; PULSE 77; RESP 21; TEMP 98.9; O2SAT 96
--- NOTE | 2024-08-30 20:37 | PROGRESS NOTE ---
Progress Note ID Providers to CC ~ Progress Note Progress Note: Antibiotic Days: PO Vanco 8, IV Vanco 1, [place] Vanco 3 Lines: PIV Micro: 08/21 Blood- negative 08/21 Urine- Yeast 08/27 Blood- 1/2 GPC in clusters 08/29 Blood- ngtd Subjective: Patient's WBC count is slowly trending down. Blood cultures still not identified. Noted new O2 this evening Objective: Vitals: Afebrile, 74, 23, 133/61, 92% on 2L General: Alert,NAD CV: Regular Resp: Clear anteriorly, decreased at bases Abd: Soft, ostomy ok, nontender Ext: No edema Lines: PIV ok Laboratory Tests 08/30/24 04:00 08/30 CXR Small bilateral pleural effusions. Multifocal airspace opacities. Assessment: // Severe C Diff // Leukocytosis, remains high. Coming down slowly // 1/2 Blood cultures positive for GPC in clusters, of unclear significance yet // Hypoxia - noted 2L today. May need to drain effusions // Renal enhancement, wedge shaped // Decubiti // Bedbound // Antibiotic Allergies: PCN listed causing rash Plan: - Continue PO Vanco and [place] Vanco for CDI - OK for IV Vanco until significance of blood cultures is known - Follow up repeat blood cultures, ngtd - Limit other systemic antibiotics as able - US chest; please also do as much pulmonary toilet as possible to try to stave off need for any systemic abx - Monitor WBC count, Cr, Stool output, O2 requirement - Wound care - Physcial therapy - Will continue to follow AN NICHOLSON DO August 30, 2024 20:37
[2024-08-30 22:00] VITALS: BP 151/69; PULSE 78; RESP 18; TEMP 97.8; O2SAT 94
[2024-08-31 04:22] LABS: BASOPHILS % (AUTO) 0.2 % (0-1); EOSINOPHILS # (AUTO) 0.1 X10'3 (0-0.9); EOSINOPHILS % (AUTO) 0.5 % (0-6); HEMATOCRIT 32.1 % (35.0-45.0); HEMOGLOBIN 10.7 g/dl (12.0-16.0); LYMPHOCYTES # (AUTO) 1.5 X10'3 (1.1-4.8); LYMPHOCYTES % (AUTO) 7.3 % (21-51); MEAN CORPUSCULAR HEMOGLOBIN 31.7 PG (27.0-31.0); MEAN CORPUSCULAR HGB CONC 33.3 g/dL (33.0-36.5); MEAN CORPUSCULAR VOLUME 95.1 FL (78-98); MEAN PLATELET VOLUME 8.5 FL (7.4-10.4); MONOCYTES # (AUTO) 1.1 X10'3 (0-0.9); MONOCYTES % (AUTO) 5.2 % (2-12); NEUTROPHILS # (AUTO) 17.7 X10'3 (1.8-7.7); NEUTROPHILS % (AUTO) 86.8 % (42-75); PLATELET COUNT 237 X10'3 (140-440); RED BLOOD COUNT 3.37 X10'6 (4.20-5.60); RED CELL DISTRIBUTION WIDTH 15.7 % (11.5-14.5); WHITE BLOOD COUNT 20.3 X10'3 (4.5-11.0)
[2024-08-31 04:35] LABS: ALANINE AMINOTRANSFERASE 56 U/L (12-78); ALBUMIN 1.3 G/DL (3.4-5.0); ALBUMIN/GLOBULIN RATIO 0.4 (1.1-1.5); ALKALINE PHOSPHATASE 125 IU/L (46-116); ANION GAP 4 (8-16); ASPARTATE AMINO TRANSFERASE 65 U/L (10-37); BILIRUBIN,TOTAL 0.3 MG/DL (0.1-1.0); BLOOD UREA NITROGEN 30 MG/DL (7-18); BUN/CREATININE RATIO 49.2 (10.0-20.0); CALCIUM 8.3 MG/DL (8.5-10.1); CHLORIDE 107 MMOL/L (99-107); CREATININE 0.61 MG/DL (0.40-0.90); GLUCOSE 167 MG/DL (70-104); SODIUM 139 MMOL/L (135-145); TOTAL CARBON DIOXIDE 27.7 MMOL/L (24-32); TOTAL PROTEIN 4.2 G/DL (6.4-8.2); eCRCL 56 ML/MIN; eGFR > 90 ML/MIN
[2024-08-31 06:42] VITALS: BP 121/61; PULSE 75; RESP 14; TEMP 97.7; O2SAT 98
[2024-08-31 07:15] VITALS: RESP 14; O2SAT 98
[2024-08-31 11:00] VITALS: BP 139/73; PULSE 86; RESP 17; TEMP 97.9; O2SAT 95
--- NOTE | 2024-08-31 15:37 | PROGRESS NOTE ---
Daily Progress Note Providers to CC ~ Antibiotic Timeout Antibiotic Ordered?: Yes Subjective Chief complaint none Patient is sleeping comfortably easily arousable Review of systems negative for all 10 systems reviewed Objective Vital Signs Date Time Temp Pulse Resp B/P (MAP) Pulse Ox O2 Delivery O2 Flow Rate FiO2 08/31/24 11:00 97.9 86 17 139/73 (95) 95 Nasal Cannula 2.0 08/31/24 07:15 21 Result Diagram: 08/31/24 0352 08/31/24 0352 PATIENT IS ALERT AND ORIENTED X2 IN NO ACUTE DISTRESS SLOW TO RESPOND BUT RESPONDS APPROPRIATELY HEENT NORMOCEPHALIC NONTRAUMATIC HEAD POSITIVE PALLOR CVS FIRST AND SECOND HEART SOUNDS ARE REGULAR RATE RHYTHM NO MURMURS GALLOPS OR RUBS RESPIRATORY SYSTEM BILATERAL BASILAR CRACKLES MINIMAL ABDOMEN IS SOFT DISTENDED BOWEL SOUNDS ARE HYPERACTIVE NONTENDER NO MASSES APPRECIATED EXTREMITIES NO CLUBBING CYANOSIS EDEMA Problem\Assessment\Plan Problems/Diagnosis: (1) Decubitus ulcer (2) Sepsis (3) C. difficile colitis 89 years old female who came from [facility] for acute altered mental status today with a past medical history of decubitus aerosol in her lumbosacral region which is managing with wound VAC, bilateral heels pressure ulcers, s/p scaral decubitus ulcer debridement and diverting functioning colostomy, s/p right hip arthroplasty for right femoral neck hip fracture, HTN, HLD, AFib with CVR on renal dose of Eliquis, hypothyroidism on levothyroxine, s/p cholecystectomy, appendicectomy, three C sections. # C. diff- POA # Sepsis 2/2 C.diff # UTI- POA # Acute metabolic encephalopathy 2/2 above # Lumbosacral decubitus ulcers with wound VAC- POA # Bilateral pressure heels ulcers- POA # ?? Aspiration PNA- not POA # Dementia # Presence of colostomy -08/23: lactic acid normalized, procal and wbc downtrending; continued on vancomycin p.o., wound care; IV vanco/cefepime discontinued; on isolation ID CONSULT APPRECIATED -08/24: Discharge held due to Medicare appeal. -08/25: Discharge held due to Medicare appeal. -08/27: uptrended white count and slightly uptrended procal Continued on oral vancomycin for c.diff. Patient does not have diarrhea. Repeat CXR and UA. Consulted ID Dr. Seo, oral vanco dose increased. -08/28: CXR shows pneumonia, etiology likely aspiration in the setting of baseline dementia, start bolus IVF, given a dose of levofloxacin, discontinued per ID recommendation; Pending CT abd/pelv -08/29: normalized lactic acid, white count slightly dropped # Prerenal GRIS on CKD stage III 2/2 sepsis/ vasomotor nephropathy -resolving on IVF # Chronic diastolic heart failure -no clinical signs of fluid overload; LA normalized with IVF # Normocytic anemia -follow lab # Hyperglycemia -A1C 5.6% -continuous daily monitoring and will consider for Insulin to control RBS -08/26: start Lantus, supplemental insulin # Hypertension # HLD # AFib with CVR on Eliquis # Hypothyroidism -Eliquis, metoprolol succ, home levothyroxine # Hypernatremia -08/26: mildly hypernatremic along with elevated Cl, likely secondary to IVNS. NS discontinued, started on D5W -08/27: Hypernatremia corrected with D5W Code Status: DNR DVT/VTE prophylaxis: Eliquis Disposition: Rehab Patient wishes DNR Date of Service: August 31, 2024 Billing Provider: RAJESH JUNIOR MD Common Visit Codes: [id number] INP/OBS CARE(HIGH) RAJESH JUNIOR MD August 31, 2024 15:37
[2024-08-31 18:00] VITALS: BP 160/69; PULSE 82; RESP 20; TEMP 98.3; O2SAT 98
[2024-08-31 20:00] VITALS: RESP 18; O2SAT 95
[2024-08-31] MEDS: JUVEN Smoothie Arginine/Glut./Ca2+Bmb (Juven 19.3pkt) 240ml cup PO SCH (20:00)
[2024-08-31 22:00] VITALS: BP 158/71; PULSE 90; RESP 16; TEMP 97.6; O2SAT 95
[2024-09-01 04:13] LABS: BASOPHILS % (AUTO) 0.1 % (0-1); EOSINOPHILS # (AUTO) 0.1 X10'3 (0-0.9); EOSINOPHILS % (AUTO) 0.4 % (0-6); HEMATOCRIT 31.9 % (35.0-45.0); HEMOGLOBIN 10.7 g/dl (12.0-16.0); LYMPHOCYTES # (AUTO) 1.2 X10'3 (1.1-4.8); MEAN CORPUSCULAR HEMOGLOBIN 31.7 PG (27.0-31.0); MEAN CORPUSCULAR HGB CONC 33.4 g/dL (33.0-36.5); MEAN PLATELET VOLUME 8.5 FL (7.4-10.4); MONOCYTES # (AUTO) 0.9 X10'3 (0-0.9); MONOCYTES % (AUTO) 4.3 % (2-12); NEUTROPHILS # (AUTO) 17.6 X10'3 (1.8-7.7); NEUTROPHILS % (AUTO) 89.2 % (42-75); PLATELET COUNT 237 X10'3 (140-440); RED BLOOD COUNT 3.36 X10'6 (4.20-5.60); RED CELL DISTRIBUTION WIDTH 15.9 % (11.5-14.5); WHITE BLOOD COUNT 19.8 X10'3 (4.5-11.0)
[2024-09-01 04:24] LABS: ALANINE AMINOTRANSFERASE 68 U/L (12-78); ALBUMIN 1.4 G/DL (3.4-5.0); ALBUMIN/GLOBULIN RATIO 0.4 (1.1-1.5); ALKALINE PHOSPHATASE 136 IU/L (46-116); ANION GAP 5 (8-16); ASPARTATE AMINO TRANSFERASE 85 U/L (10-37); BILIRUBIN,TOTAL 0.3 MG/DL (0.1-1.0); BLOOD UREA NITROGEN 27 MG/DL (7-18); BUN/CREATININE RATIO 44.3 (10.0-20.0); CALCIUM 8.1 MG/DL (8.5-10.1); CHLORIDE 105 MMOL/L (99-107); CREATININE 0.61 MG/DL (0.40-0.90); GLUCOSE 165 MG/DL (70-104); POTASSIUM 3.9 MMOL/L (3.5-5.1); SODIUM 138 MMOL/L (135-145); TOTAL CARBON DIOXIDE 28.2 MMOL/L (24-32); TOTAL PROTEIN 4.7 G/DL (6.4-8.2); eCRCL 56 ML/MIN; eGFR > 90 ML/MIN
[2024-09-01 04:52] LABS: BANDS% (MANUAL) 7 % (0-10); EOSINOPHILS % (MANUAL) 1 % (0-6); LYMPHOCYTES % (MANUAL) 3 % (21-51); METAMYLEOCYTES% (MANUAL) 2 % (0-0); MONOCYTES % (MANUAL) 4 % (2-12); MYELOCYTES % (MANUAL) 1 % (0-0); NEUTROPHILS % (MANUAL) 82 % (42-75); PLATELET ESTIMATE NORMAL; TOTAL CELLS COUNTED 100
[2024-09-01 06:00] VITALS: BP 141/76; PULSE 85; RESP 16; TEMP 98; O2SAT 95
[2024-09-01 10:00] VITALS: BP 152/75; PULSE 83; RESP 16; TEMP 96.5; O2SAT 92
[2024-09-01] MEDS: amLODIPine 2.5mg tablet PO SCH (10:25)
[2024-09-01] MEDS: JUVEN Shake w/Arg/Glut/Ca2+Bmb (Juven 19.3gm) pkt 240ml PO SCH (12:30)
--- NOTE | 2024-09-01 12:43 | PROGRESS NOTE ---
Daily Progress Note Providers to CC ~ Antibiotic Timeout Antibiotic Ordered?: Yes Subjective Chief complaint none Review of systems negative for all 10 systems reviewed Objective Vital Signs Date Time Temp Pulse Resp B/P (MAP) Pulse Ox O2 Delivery O2 Flow Rate FiO2 09/01/24 10:25 85 09/01/24 10:00 96.5 16 152/75 (100) 92 Nasal Cannula 2.0 09/01/24 04:58 95 Result Diagram: 09/01/24 0358 09/01/24 0358 PATIENT IS ALERT AND ORIENTED X2 IN NO ACUTE DISTRESS SLOW TO RESPOND BUT RESPONDS APPROPRIATELY HEENT NORMOCEPHALIC NONTRAUMATIC HEAD POSITIVE PALLOR CVS FIRST AND SECOND HEART SOUNDS ARE REGULAR RATE RHYTHM NO MURMURS GALLOPS OR RUBS RESPIRATORY SYSTEM BILATERAL BASILAR CRACKLES MINIMAL ABDOMEN IS SOFT DISTENDED BOWEL SOUNDS ARE HYPERACTIVE NONTENDER NO MASSES APPRECIATED EXTREMITIES NO CLUBBING CYANOSIS EDEMA Problem\Assessment\Plan Problems/Diagnosis: (1) Decubitus ulcer (2) Sepsis (3) C. difficile colitis 89 years old female who came from [facility] for acute altered mental status today with a past medical history of decubitus aerosol in her lumbosacral region which is managing with wound VAC, bilateral heels pressure ulcers, s/p scaral decubitus ulcer debridement and diverting functioning colostomy, s/p right hip arthroplasty for right femoral neck hip fracture, HTN, HLD, AFib with CVR on renal dose of Eliquis, hypothyroidism on levothyroxine, s/p cholecystectomy, appendicectomy, three C sections. # C. diff- POA # Sepsis 2/2 C.diff # UTI- POA # Acute metabolic encephalopathy 2/2 above # Lumbosacral decubitus ulcers with wound VAC- POA # Bilateral pressure heels ulcers- POA # ?? Aspiration PNA- not POA # Dementia # Presence of colostomy -08/23: lactic acid normalized, procal and wbc downtrending; continued on vancomycin p.o., wound care; IV vanco/cefepime discontinued; on isolation ID CONSULT APPRECIATED -08/24: Discharge held due to Medicare appeal. -08/25: Discharge held due to Medicare appeal. -08/27: uptrended white count and slightly uptrended procal Continued on oral vancomycin for c.diff. Patient does not have diarrhea. Repeat CXR and UA. Consulted ID Dr. Seo, oral vanco dose increased. -08/28: CXR shows pneumonia, etiology likely aspiration in the setting of baseline dementia, start bolus IVF, given a dose of levofloxacin, discontinued per ID recommendation; Pending CT abd/pelv -08/29: normalized lactic acid, white count slightly dropped # Prerenal GRIS on CKD stage III 2/2 sepsis/ vasomotor nephropathy -resolved # Chronic diastolic heart failure -no clinical signs of fluid overload; LA normalized with IVF # Normocytic anemia -follow lab # Hyperglycemia -A1C 5.6% -continuous daily monitoring and will consider for Insulin to control RBS -08/26: start Lantus, supplemental insulin # Hypertension # HLD # AFib with CVR on Eliquis # Hypothyroidism -Eliquis, metoprolol succ, home levothyroxine # Hypernatremia Resolved Code Status: DNR DVT/VTE prophylaxis: Eliquis Disposition: Rehab Patient wishes DNR Date of Service: September 01, 2024 Billing Provider: RAJESH JUNIOR MD Common Visit Codes: [id number] INP/OBS CARE(HIGH) RAJESH JUNIOR MD September 01, 2024 12:43
[2024-09-01 13:45] VITALS: RESP 16; O2SAT 92
[2024-09-01 20:00] VITALS: RESP 18; O2SAT 94
[2024-09-01] MEDS: furosemide 40mg/4ml inj IV ONE (21:22)
[2024-09-01] MEDS ORDERED: vancomycin 125 MG/5 ML UD oral SOLN.RECON 5mL oral syringe (FIRVANQ) PO SCH (21:29)
--- NOTE | 2024-09-01 21:33 | PROGRESS NOTE ---
Progress Note ID Providers to CC ~ Progress Note Progress Note: Antibiotic Days: PO Vanco 10, IV Vanco 3, TX Vanco 5 Lines: PIV Micro: 08/21 Blood- negative 08/21 Urine- Yeast 08/27 Blood- 1/ S epi 08/29 Blood- ngtd Subjective: Patient's blood cultures are finally identified as contaminants. Objective: Vitals: Afebrile, 85, 16, 141/76, 95% on 2L General: Alert,NAD CV: Regular Resp: Upper respiratory sounds Abd: Soft, ostomy ok, nontender Ext: No edema Lines: PIV ok Laboratory Tests 09/01/24 03:58 Assessment: // Severe C Diff // Leukocytosis, coming down slowly // 1/2 Blood cultures positive for S epi, consistent with contaminant // Hypoxia - noted 2L today. Needs suctioning // Renal enhancement, wedge shaped // Decubiti // Bedbound // Antibiotic Allergies: PCN listed causing rash Plan: - Continue PO Vanco and TX Vanco for CDI, 10 days from the time her systemic therapy stopped - DC IV Vanco - Follow up repeat blood cultures, ngtd - Limit other systemic antibiotics if possible - Continue pulmonary toilet as possible to try to stave off need for any systemic abx - Monitor WBC count, Cr, Stool output, O2 requirement - Wound care - Physcial therapy - Will continue to follow AN NICHOLSON DO September 01, 2024 21:33
[2024-09-01] MEDS: vancomycin 125 MG/5 ML UD oral SOLN.RECON 5mL oral syringe (FIRVANQ) PO SCH (21:44)
[2024-09-01 22:00] VITALS: BP 130/61; PULSE 94; RESP 20; TEMP 98.3; O2SAT 94
[2024-09-02 04:25] LABS: BASOPHILS % (AUTO) 0.2 % (0-1); EOSINOPHILS % (AUTO) 0.1 % (0-6); HEMATOCRIT 30.5 % (35.0-45.0); HEMOGLOBIN 10.1 g/dl (12.0-16.0); LYMPHOCYTES % (AUTO) 4.6 % (21-51); MEAN CORPUSCULAR HEMOGLOBIN 31.3 PG (27.0-31.0); MEAN CORPUSCULAR HGB CONC 33.2 g/dL (33.0-36.5); MEAN CORPUSCULAR VOLUME 94.4 FL (78-98); MEAN PLATELET VOLUME 8.5 FL (7.4-10.4); MONOCYTES % (AUTO) 4.8 % (2-12); NEUTROPHILS # (AUTO) 19.3 X10'3 (1.8-7.7); NEUTROPHILS % (AUTO) 90.3 % (42-75); PLATELET COUNT 237 X10'3 (140-440); RED BLOOD COUNT 3.23 X10'6 (4.20-5.60); RED CELL DISTRIBUTION WIDTH 16.2 % (11.5-14.5); WHITE BLOOD COUNT 21.3 X10'3 (4.5-11.0)
[2024-09-02 04:45] LABS: ALANINE AMINOTRANSFERASE 71 U/L (12-78); ALBUMIN 1.4 G/DL (3.4-5.0); ALBUMIN/GLOBULIN RATIO 0.4 (1.1-1.5); ALKALINE PHOSPHATASE 135 IU/L (46-116); ANION GAP 4 (8-16); ASPARTATE AMINO TRANSFERASE 83 U/L (10-37); BILIRUBIN,TOTAL 0.3 MG/DL (0.1-1.0); BLOOD UREA NITROGEN 24 MG/DL (7-18); BUN/CREATININE RATIO 40.7 (10.0-20.0); CALCIUM 8.3 MG/DL (8.5-10.1); CHLORIDE 106 MMOL/L (99-107); CREATININE 0.59 MG/DL (0.40-0.90); GLUCOSE 189 MG/DL (70-104); POTASSIUM 3.6 MMOL/L (3.5-5.1); SODIUM 141 MMOL/L (135-145); TOTAL CARBON DIOXIDE 30.6 MMOL/L (24-32); TOTAL PROTEIN 4.6 G/DL (6.4-8.2); eCRCL 58 ML/MIN; eGFR > 90 ML/MIN
[2024-09-02 06:00] VITALS: BP 126/66; PULSE 82; RESP 20; TEMP 97.6; O2SAT 92
[2024-09-02 09:01] VITALS: BP_SYST 126; PULSE 82
[2024-09-02 11:54] VITALS: RESP 16; O2SAT 92
[2024-09-02] MEDS ORDERED: ipratropium/albuterol 3ml nebule NEB PRN (13:05)
--- NOTE | 2024-09-02 13:18 | PROGRESS NOTE ---
Daily Progress Note Providers to CC ~ Antibiotic Timeout Antibiotic Ordered?: Yes Subjective CHIEF COMPLAINT PATIENT IS UNABLE TO CLEARLY SPEAK IS MUMBLING INCOHERENTLY REVIEW OF SYSTEMS UNABLE TO BE OBTAINED SON STANDING AT THE BEDSIDE HE ALSO DOES NOT UNDERSTAND WHAT SHE IS VERBALIZING Objective Vital Signs Date Time Temp Pulse Resp B/P (MAP) Pulse Ox O2 Delivery O2 Flow Rate FiO2 09/02/24 11:54 16 92 Nasal Cannula 2.0 09/02/24 09:01 82 09/02/24 06:00 97.6 126/66 (86) 09/02/24 05:31 94 Result Diagram: 09/02/2440109/02/24401 PATIENT IS ALERT AND ORIENTED X0 IN NO ACUTE DISTRESS SLOW TO RESPOND BUT RESPONDS APPROPRIATELY HEENT NORMOCEPHALIC NONTRAUMATIC HEAD POSITIVE PALLOR CVS FIRST AND SECOND HEART SOUNDS ARE REGULAR RATE RHYTHM NO MURMURS GALLOPS OR RUBS RESPIRATORY SYSTEM BILATERAL BASILAR CRACKLES ABDOMEN IS SOFT DISTENDED BOWEL SOUNDS ARE HYPERACTIVE NONTENDER NO MASSES APPRECIATED EXTREMITIES NO CLUBBING CYANOSIS EDEMA Problem\Assessment\Plan Problems/Diagnosis: (1) Decubitus ulcer (2) Sepsis (3) C. difficile colitis 89 years old female who came from [facility] for acute altered mental status today with a past medical history of decubitus aerosol in her lumbosacral region which is managing with wound VAC, bilateral heels pressure ulcers, s/p scaral decubitus ulcer debridement and diverting functioning colostomy, s/p right hip arthroplasty for right femoral neck hip fracture, HTN, HLD, AFib with CVR on renal dose of Eliquis, hypothyroidism on levothyroxine, s/p cholecystectomy, appendicectomy, three C sections. # C. diff- POA # Sepsis 2/2 C.diff # UTI- POA # Acute metabolic encephalopathy 2/2 above # Lumbosacral decubitus ulcers with wound VAC- POA # Bilateral pressure heels ulcers- POA # ?? Aspiration PNA- WHICH I FEAR IS WORSENING PATIENT IS ASPIRATING # Dementia MILD # Presence of colostomy # Prerenal GRIS on CKD stage III 2/2 sepsis/ vasomotor nephropathy -resolved # BILATERAL PLEURAL EFFUSIONS WORSENING TO STARTED THE PATIENT ON IV LASIX # ACUTE RESPIRATORY FAILURE SECONDARY TO BILATERAL PLEURAL EFFUSIONS ASPIRATION PNEUMONIA START THE PATIENT ON CPAP HEP-LOCK IV FLUIDS # Chronic diastolic heart failure -no clinical signs of fluid overload; LA normalized with IVF # Normocytic anemia -follow lab # Hyperglycemia -A1C 5.6% -continuous daily monitoring and will consider for Insulin to control RBS -08/26: start Lantus, supplemental insulin # Hypertension # HLD # AFib with CVR on Eliquis # Hypothyroidism -Eliquis, metoprolol succ, home levothyroxine # Hypernatremia Resolved Code Status: DNR DVT/VTE prophylaxis: Eliquis Disposition: Rehab PROGNOSIS POOR Patient wishes DNR PATIENT'S SON AT THE BEDSIDE ALL QUESTIONS ANSWERED TO THE BEST OF MY ABILITY. HE IS MADE AWARE THAT THE PATIENT IS NOT IMPROVING. Date of Service: September 02, 2024 Billing Provider: RAJESH JUNIOR MD Common Visit Codes: [id number] INP/OBS CARE(HIGH) RAJESH JUNIOR MD September 02, 2024 13:18
[2024-09-02] MEDS: furosemide 40mg/4ml inj IV ONE (14:44)
--- NOTE | 2024-09-02 16:52 | DISCHARGE SUMMARY ---
Discharge Summary Providers to CC ~ Discharge Summary Admission Diagnosis: METABOLIC ENCEPHALOPATHY Hospital Course DATE OF ADMISSION: 08/22/2024 DATE OF DISCHARGE: 09/02/2024 Discharge Diagnosis\Comment: Severe C diff colitis aspiration pneumonia fluid overloaded UTI Operations\Procedures: None Consultants: Dr. Calderon Complications: None Condition on DC: Discharge Summary: Patient was a pleasant 89-year-old female was admitted on 08/22/2024 with History of Present Illness An 89 years old female who came from [facility] for acute altered mental status today with a past medical history of decubitus aerosol in her lumbosacral region which is managing with wound VAC, bilateral heels pressure ulcers, s/p scaral decubitus ulcer debridement and diverting functioning colostomy, s/p right hip arthroplasty for right femoral neck hip fracture, HTN, HLD, AFib with CVR on renal dose of Eliquis, hypothyroidism on levothyroxine, s/p cholecystectomy, appendicectomy, three C sections. Patient is orientated to the place and person herself but not the time, very lethargic and generalized weakness made her poor history providing but responding to questions slowly and cooperative during exam. As per staff from [facility], patient is orientated alert and awake for 4 times before she got altered mental status this morning. Patient has chronic Estrella catheterization once she came in, mostly bed-bound with wound VAC over her lumbosacral decubitus ulcer. Patient was found to have fever around 102 before she came in. She denies any nausea and vomiting, chest pain/pressure/discomfort, body pain, coughing, shortness of breath, orthopnea PND and bilateral pedal edema, dysuria, abnormal bowel movements, any new FND. She was not reported for any falls or head injury. Hospital course patient was a pleasant 89-year-old female that had severe C diff colitis in spite of p.o. vanco and rectal vanco patient was not improving. But she also had an ongoing urinary tract infection and was aspirating. Patient also was a DNR family at bedside wanted the patient to have comfort care. Patient peacefully well as I was at the bedside. We did an EKG to verify that was flat line. Patient was pronounced. Family to make arrangements as they plan and cremation and they will contact the home. *Problems/Diagnosis: (1) Decubitus ulcer Status: Chronic (2) Sepsis Status: Acute (3) C. difficile colitis Status: Acute Total Time Spent on D/C: > 30 Minutes Date of Service: September 02, 2024 Billing Provider: RAJESH JUNIOR MD Common Visit Codes: [id number] DISCH DAY >30min RAJESH JUNIOR MD September 02, 2024 16:51
[2024-09-03] MEDS ORDERED: furosemide 40mg/4ml inj IV SCH (08:00)
== END 2024-09-02 18:35 | DRG 871 ==
LOC: ER 20:36 → ED HOLD 23:38 → SUR 3N 08-22 01:05 → PCU 3S 08-22 05:30 → SUR 3N 08-22 14:47
PROVIDERS: ADMIT Internal Medicine; ATTEND Family Medicine
PROC: BW211ZZ Computerized Tomography (CT Scan) of Abdomen and Pelvis using Low Osmolar Contrast (ICD-10-PCS; principal; 2024-08-28)
DX: A41.89 Other specified sepsis (principal); G93.41 Metabolic encephalopathy; N17.0 Acute kidney failure with tubular necrosis; J69.0 Pneumonitis due to inhalation of food and vomit; J96.00 Acute respiratory failure, unspecified whether with hypoxia or hypercapnia; E87.0 Hyperosmolality and hypernatremia; A04.72 Enterocolitis due to Clostridium difficile, not specified as recurrent; N12 Tubulo-interstitial nephritis, not specified as acute or chronic; I13.0 Hypertensive heart and chronic kidney disease with heart failure and stage 1 through stage 4 chronic kidney disease, or unspecified chronic kidney disease; I50.32 Chronic diastolic (congestive) heart failure; D63.1 Anemia in chronic kidney disease; L89.629 Pressure ulcer of left heel, unspecified stage; L89.619 Pressure ulcer of right heel, unspecified stage; Z66 Do not resuscitate; L89.899 Pressure ulcer of other site, unspecified stage; L89.159 Pressure ulcer of sacral region, unspecified stage; Z51.5 Encounter for palliative care; N18.30 Chronic kidney disease, stage 3 unspecified; Z74.01 Bed confinement status; E03.9 Hypothyroidism, unspecified; I48.91 Unspecified atrial fibrillation; Z96.641 Presence of right artificial hip joint; E78.00 Pure hypercholesterolemia, unspecified; F03.90 Unspecified dementia, unspecified severity, without behavioral disturbance, psychotic disturbance, mood disturbance, and anxiety; R73.9 Hyperglycemia, unspecified; Z88.0 Allergy status to penicillin; Z88.1 Allergy status to other antibiotic agents; Z85.048 Personal history of other malignant neoplasm of rectum, rectosigmoid junction, and anus; Z90.49 Acquired absence of other specified parts of digestive tract; Z93.3 Colostomy status
CPT/HCPCS: 36415; 71045; 74177; 76770; 80053; 80061; 80202; 80305; 81001; 82140; 82948; 83036; 83605; 83735; 83880; 84100; 84145; 84443; 84484; 85007; 85025; 85651; 87040; 87077; 87081; 87088; 87186; 87324; 87449; 92508; 92616; 93005; 94664; 94668; 96365; 97110; 97161; 99291; A4314; A4421; A4615; A4649; A5200; A6196; A6212; A6213; A6250; A6253; A6266; A6446; A6449; G0378; J0692; J0696; J1815; J1940; J1956; J2405; J3370; J3490; J7030; J7040; J7042; J7070; J7120; P9047; Q9963; Q9967